=== PATIENT | female | born 1960 | race American Indian/Alaskan Native ===

== ENCOUNTER 2017-05-18 11:02 | Inpatient (IN) ==
[2017-05-18] MEDS ORDERED: IOPAMIDOL 100 ML BOTTLE IV ONE (11:03)
[2017-05-18] MEDS ORDERED: 0.9 % SODIUM CHLORIDE 1,000 ML IV ONE ×2 (11:17→13:49)
[2017-05-18] MEDS ORDERED: ONDANSETRON 4 MG/2 ML VIAL IV ONE (11:17)
[2017-05-18] MEDS ORDERED: HYDROmorphone 2 MG/ML VIAL IV PRN (11:17)
[2017-05-18 12:08] LABS: Basophils # (Auto) 0 K/mcL (0.0-0.3); Basophils % (Auto) 0.3 % (0.0-2.0); Eosinophils # (Auto) 0.2 K/mcL (0.0-0.7); Eosinophils % (Auto) 2.1 % (0.0-7.0); Granulocytes % (Auto) 73.2 % (38.0-78.0); Lymphocytes # (Auto) 1.9 K/mcL (1.5-4.8); Lymphocytes % (Auto) 19.3 % (15.5-49.0); Mean Cell Volume 88.6 fL (80.0-100.0); Mean Corpuscular HGB Conc 33.8 g/dL (31.0-36.0); Monocytes # (Auto) 0.5 K/mcL (0.1-0.9); Monocytes % (Auto) 5.1 % (1.0-12.0); Platelet Count 214 K/mcL (140-440); RBC 5.19 M/mcL (4.00-5.20); Red Cell Distribution Width 13.4 % (11.5-14.5)
[2017-05-18 12:29] LABS: ALT/SGPT 17 U/l (0-40); Albumin 4.2 gm/dL (3.2-5.2); Albumin/Globulin Ratio 1.6 (1.0-2.3); Alkaline Phosphatase 139 U/L (39-117); Blood Urea Nitrogen 17 mg/dl (6-20)
[2017-05-18] MEDS ORDERED: KETOROLAC 30 MG/ML VIAL IV ONE (12:59)
[2017-05-18 13:04] LABS: Amylase 2289 U/L (28-100); Lipase 3880 U/L (7-60)
--- NOTE | 2017-05-18 13:37 | Emergency Department Note ---
Abdominal Pain HPI - General Chief Complaint: Abdominal Pain Stated Complaint: Pancreatic problems Time Seen by Provider: 05/18/17 11:04 Source: patient Mode of arrival: ambulatory Limitations: no limitations - History of Present Illness HPI Narrative: 57-year-old female presents with mid upper abdominal pain. States "I think my pancreatitis is back ". States she has a history of chronic pancreatitis. She stopped drinking alcohol 9 years ago and has not had a problem for several years. States 3 days ago she started with abdominal pain and has had nausea and started vomiting this morning. Denies any recent alcohol use. No fever or chills. No dysuria or frequency. No home treatments. - Related Data Home Medications Medication Instructions Recorded Confirmed Multivitamin PO QDAY 09/01/14 05/12/17 [id number] See Dose Instructions PO .COMPLEX 09/01/14 05/12/17 25,000-85,000-136,000 unit cap capsule,delayed rel Previous Rx's Medication Instructions Recorded omeprazole 20 mg capsule,delayed 20 mg PO QDAY #30 cap 11/02/15 release nortriptyline 10 mg capsule 10 mg PO QHS 90 Days #90 cap 12/11/15 fluoxetine 20 mg capsule 20 mg PO QDAY #90 cap 11/13/16 metformin ER 1,000 mg 1,000 mg PO QDAY 90 Days #90 tab 11/13/16 tablet,extended release 24hr naproxen 500 mg tablet 500 mg PO Q12H #60 tab 11/21/16 albuterol sulfate HFA 90 2 puff INHALATION Q4-6H PRN #18 g 02/10/17 mcg/actuation aerosol inhaler lisinopril 5 mg tablet 5 mg PO QDAY #90 tab 02/10/17 lovastatin 20 mg tablet 20 mg PO QPM #90 tab 02/10/17 Allergies Allergy/AdvReac Type Severity Reaction Status Date / Time tramadol Allergy Unknown Rash Verified 05/18/17 11:07 morphine Allergy Headache Verified 05/18/17 11:07 Review of Systems All systems ED: reviewed and negative except as stated. Abdominal Pain PMH - Past Medical History PMFSH Narrative: Medical History Community acquired pneumonia (Chronic) Urinary, incontinence, stress female (Chronic) Urinary incontinence (Chronic) Urinary frequency (Chronic) Tobacco abuse (Chronic) Sleep apnea, obstructive (Chronic) Rectocele (Chronic) Personal history of mental disorder (Chronic) Pap smear of vagina with ASC-US (Chronic) Obesity (Chronic) Nocturia (Chronic) Migraine (Chronic) Menopausal syndrome (Chronic) Liver disorder (Chronic) Hyperlipidemia (Chronic) Hiatal hernia (Chronic) Gastroesophageal reflux (Chronic) Dyslexia (Chronic) Diverticulitis of colon (Chronic) DM (diabetes mellitus), type 2, uncontrolled (Chronic) DM type 2 (diabetes mellitus, type 2) (Chronic) Depressive disorder (Chronic) Cystocele, midline (Chronic) Colon polyp (Chronic) Chronic pancreatitis (Chronic) Carpal tunnel syndrome (Chronic) Barretts esophagus (Chronic) Asthma (Chronic) Anxiety disorder (Chronic) Abdominal pain (Chronic) Past Surgical History History of tubal ligation (Chronic) History of oophorectomy (Chronic) History of esophagogastroduodenoscopy (Chronic) History of dilation and curettage (Chronic) History of colonoscopy (Chronic) History of colectomy (Chronic) History of carpal tunnel repair (Chronic) Medical history: Reports: DM, GERD, hyperlipidemia Surgical history ED: Reports: tubal ligation - Social History Smoking status: Current every day smoker Alcohol use: Reports: None (Denies any current alcohol use but states she was a heavy drinker until she quit 9 years ago) Drug use: Reports: none Physical Exam Limitations: no limitations General appearance: alert, in no apparent distress Head: atraumatic, normocephalic, normal inspection Eye: Present: normal appearance. Absent: conjunctival injection ENT: normal exam, normal oropharynx, mucous membranes moist, normal external ear exam Neck: Present: normal inspection, trachea midline. Absent: tenderness, lymphadenopathy Chest: Present: normal inspection, symmetric chest wall rise Respiratory: Present: normal lung sounds bilaterally. Absent: respiratory distress, wheezes, accessory muscle use Cardiovascular: Present: regular rate, normal heart sounds Abdominal: Present: soft, distention (Mild distention. Round), tenderness ( Midepigastric tenderness and left upper quadrant tenderness with palpation), normal bowel sounds Extremities: Present: normal inspection, normal capillary refill. Absent: pedal edema Neurological: Present: alert, oriented X3, normal gait Psychiatric: Present: normal affect, normal mood Skin: Present: warm, dry, intact, normal color. Absent: rash, cyanosis, diaphoresis, erythema Course Course Narrative: At 1402 I did speak with the hospitalist, Dr. Avery who agrees to accept the patient. Vital Signs Temperature 97.6 F 05/18/17 11:03 Pulse Rate 89 05/18/17 11:03 Respiratory Rate 16 05/18/17 11:03 Blood Pressure 206/112 05/18/17 11:03 Pulse Oximetry (%) 97 05/18/17 11:03 Temperature 97.6 F 05/18/17 11:03 Pulse Rate 72 05/18/17 13:01 Respiratory Rate 16 05/18/17 11:03 Blood Pressure 140/82 05/18/17 13:01 Pulse Oximetry (%) 90 05/18/17 13:01 Abdominal Pain - Lab Data Lab results reviewed: Yes I reviewed the patient's lab results. Result diagrams: 05/18/17 11:25 05/18/17 11:25 Lab Results 05/18/17 05/18/17 05/18/17 Range/Units 11:25 11:25 11:25 WBC 9.9 (4.5-11.0) K/mcL RBC 5.19 (4.00-5.20) M/mcL Hgb 15.6 H (12.0-15.0) g/dL Hct 46.0 (36.0-48.0) % MCV 88.6 (80.0-100.0) fL MCH 30.0 (26.0-34.0) pg MCHC 33.8 (31.0-36.0) g/dL RDW 13.4 (11.5-14.5) % Plt Count 214 (140-440) K/mcL MPV 8.9 (7.4-10.4) fL Gran % 73.2 (38.0-78.0) % Lymph % (Auto) 19.3 (15.5-49.0) % [place] % (Auto) 5.1 (1.0-12.0) % Eos % (Auto) 2.1 (0.0-7.0) % Baso % (Auto) 0.3 (0.0-2.0) % Gran # 7.3 (1.8-8.0) K/mcL Lymph # (Auto) 1.9 (1.5-4.8) K/mcL [place] # (Auto) 0.5 (0.1-0.9) K/mcL Eos # (Auto) 0.2 (0.0-0.7) K/mcL Baso # (Auto) 0 (0.0-0.3) K/mcL Sodium 140 (133-145) mmol/L Potassium 4.1 (3.3-5.1) mmol/L Chloride 103 (96-108) mmol/L Carbon Dioxide 23 (22-30) mmol/L Anion Gap 14.0 (8-16) BUN 17 (6-20) mg/dl Creatinine 1.1 (0.6-1.1) mg/dl GFR Calculation 56 Glucose 155 H (70-105) mg/dL Calcium 9.2 (8.6-10.4) mg/dl Total Bilirubin 0.4 (0.0-1.0) mg/dL AST 23 (0-37) U/l ALT 17 (0-40) U/l Alkaline Phosphatase 139 H (39-117) U/L Total Protein 6.9 (5.9-8.4) gm/dL Albumin 4.2 (3.2-5.2) gm/dL Globulin 2.7 (2.2-3.7) gm/dL Albumin/Globulin Ratio 1.6 (1.0-2.3) Amylase 2289 H (28-100) U/L Lipase 3880 H (7-60) U/L Ethyl Alcohol < 0.010 (<0.010) gm/dl - Radiology Data Radiology results reviewed: Yes I reviewed the patient's radiology results. Disposition Pt seen by [facility]/PA only: Yes Clinical Impression: Acute pancreatitis, Chronic pancreatitis, Abdominal pain, Nausea and vomiting Disposition: Xfer As Inpt ([facility]) Condition: Fair Referrals: Alexander Arriaga PA-C [Primary Care Provider] - Time of Disposition: 14:03
--- NOTE | 2017-05-18 14:58 | Cat Scan Report ---
CLINICAL INFORMATION: Reason for Exam:abd pain, pancreatitis, (NO oral contrast, iv only FINDINGS: The patient was imaged following intravenous but no oral contrast from the diaphragm to the symphysis pubis. Sagittal and coronal reformats were created. The liver and spleen are normal in size and homogeneous. The gallbladder is normal. There is severe dilatation of the proximal common bile duct. This tapers just above the ampulla. The common bile duct measures up to 2.1 cm. The intrahepatic ducts are borderline dilated. No stone is seen within the lumen. Patient has severe pancreatitis. There is edema and inflammation in the head and neck and edema in the surrounding fat from the head to the tail. The inflammation extends into the root of the mesentery. No pseudocyst or abscess are present. There are calcifications in the head of the pancreas indicating chronic pancreatitis. In the head, the pancreatic duct measures 4 mm. Is less than 3 mm in the body and tail. No ascites or adenopathy are present. The kidneys are normal in size shape and contour. The adrenals are normal. The aorta is normal in caliber. There is a moderate amount of plaque in the mid and distal portion. Images of the pelvis show no acute abnormality. The appendix is noninflamed. There are surgical sutures around the sigmoid colon. No abnormality is seen in the uterus or adnexa. There is some scarring along the anterior superior margin of the bladder, within the midline. IMPRESSION: Severe acute pancreatitis Severely dilated extrahepatic bile ducts. This could be due to extrinsic compression of the bile duct by the inflamed pancreatic head Interpreted and Authenticated by: Abhijeet Ratliff 05/18/17
[2017-05-18] MEDS ORDERED: MAGNESIUM SULFATE 2 GM/50 ML BAG IV PRN (15:01)
[2017-05-18] MEDS ORDERED: POTASSIUM CHLORIDE 40 MEQ in DEXTROSE 5% IN WATER 500 ML IV PRN (15:01)
[2017-05-18] MEDS ORDERED: ACETAMINOPHEN 325 MG TABLET PO PRN (15:01)
[2017-05-18] MEDS: 0.9 % SODIUM CHLORIDE 1,000 ML IV SCH ×3 (15:07→19:36)
[2017-05-18] MEDS: HYDROmorphone 2 MG/ML VIAL IV PRN ×3 (15:27→19:37)
[2017-05-18] MEDS ORDERED: DEXTROSE 50% 50 ML VIAL IV PRN (16:56)
[2017-05-18] MEDS ORDERED: ALBUTEROL SULFATE 1 PUFF INHALER INH PRN (17:10)
[2017-05-18] MEDS: INSULIN LISPRO 1 UNIT/0.01 ML UNIT SQ SCH ×2 (17:43→23:46)
--- NOTE | 2017-05-18 18:30 | History and Physical Report ---
DATE OF ADMISSION: 05/18/2017 PRIMARY CARE PHYSICIAN: Alexander Arriaga PA-C DATE OF ADMISSION: 05/18/2017 REASON FOR ADMISSION: Abdominal pain, nausea, with a history of chronic pancreatitis. HISTORY OF CHIEF COMPLAINT: The patient is a 57-year-old with known history of chronic pancreatitis over the last 12 years. She has been followed up by Dr. Gomez in the past and currently Gilda Ambrocio. Patient over the last three days has noted increasing abdominal pain 8/10 along with nausea and worsening of pain each time she attempts to eat. She clearly identified the pain similar to previous episode of acute pancreatitis; however, failed to seek medical attention and was trying to work with the symptoms until it got out of control and subsequently came to [facility]. Initial workup was significant for significant elevated lipase and amylase over [address] evidence of acute pancreatitis with severely dilated extrahepatic bile duct, possibly from extrinsic compression of the bile duct by inflamed pancreatic head. The patient received crystalloids, analgesics, and antiemetics, and subsequently Hospitalist Service was consulted. At the time of evaluation, the patient is alert and oriented. She denies fever and chills but endorses significant pain, 6/10 to 8/10, radiates to the back, associated with nausea and 3 episodes of loose stool. She denies weight loss or glandular swelling. She endorses to taking her regular medication but denies taking NSAIDs or drinking alcohol. She denies recent fever or sick contacts. REVIEW OF SYSTEMS: Ten-point review of system was performed and negative except the ones discussed above. Complains of vaginal bleeding starting today. PAST MEDICAL HISTORY: 1. Chronic pancreatitis. 2. Urinary incontinence. 3. Tobacco dependence. 4. History of alcoholism, but quit 9 years ago. 5. Sleep apnea. 6. Obesity. 7. History of migraine. 8. Hyperlipidemia. 9. Diabetes mellitus type 2. 10. History of reactive airway disease. 11. Anxiety disorder. SURGICAL HISTORY: 1. Tubal ligation. 2. Oophorectomy. 3. D and C. 4. Colonoscopy. 5. Colectomy. FAMILY HISTORY: Significant for diabetes and asthma in father, breast cancer in mother, lung cancer in family. SOCIAL HISTORY: The patient currently lives with daughter and son-in-law. She is disabled. Smoking roughly half pack a day carrying over 55-hjvj-aend history of smoking. Former alcoholic. CURRENT MEDICATIONS: 2. Pancreatic supplements. 3. Lisinopril 5. 4. Lovastatin 20. 5. Metformin 1000 daily. 6. Naproxen 500 every 12 hours. 7. Nortriptyline 10 at bedtime 8. Omeprazole 20 daily. ALLERGIES: 1. TRAMADOL. 2. MORPHINE. PHYSICAL EXAMINATION: GENERAL: The patient is alert, oriented, in significant distress from pain. BMI 34.7. Height 5 feet 5 inches. VITAL SIGNS: Blood pressure 153/93, respiratory rate 18, temperature 97.6, pulse 77, saturation 94 percent on room air. Pain intensity between 8 to 10. HEENT: Pupils symmetric. Oral cavity dry. No icterus. No ear or nose discharge. Head is normocephalic and atraumatic. NECK: No lymphadenopathy. CARDIOVASCULAR: S1, S2, regular rhythm. No murmur. CHEST: Clear to auscultation bilaterally. ABDOMEN: Soft, however, tender epigastric area. Bowel sounds sluggish. Slightly distended. LOWER EXTREMITIES: No cyanosis or clubbing. No joint swelling. Normal range of motion of the joints with no joint swelling or erythema. SKIN: No suspicious lesion. PSYCHIATRIC: Alert and cooperative, mild anxiety. NEURO: Nonfocal, moving all four extremities. LABS AND IMAGING: White count 9.9, hemoglobin 15.6, platelets 214. Sodium 140, potassium 4.1, creatinine 1.1, BUN 17, glucose 155, alkaline phosphatase 139, lipase 3880, amylase 2289. CRP 0.7. Alcohol less than 0.01. CT abdomen: Acute pancreatitis along with severe dilated extrahepatic bile duct, possibly from extrinsic compression of bile duct by inflamed pancreatic head. ASSESSMENT AND PLAN: A 57-year-old with chronic pancreatitis admitted with acute pancreatitis flare. 1. Acute pancreatitis. Low [place]'s and Acute Physiology and Chronic Health Evaluation score on admit. However, continue conservative management with aggressive crystalloids with over 4000 mL in the next 6 to 8 hours followed by 200 mL an hour to prevent worsening of pancreatic inflammation. Continue antiemetics and analgesics as needed. 2. Other prior medical issues include history of diabetes mellitus type 2. Continue sliding scale insulin. 3. Anxiety disorder. As needed IV benzodiazepine. Hold oral meds. 4. Hypertension/neuropathy/hyperlipidemia/gastroesophageal reflux disease. Hold oral medications until patient is able to tolerate orally. PLAN FOR TODAY: 1. Admit as inpatient. 2. Supportive management, bowel rest, nothing by mouth. 3. Pain management, crystalloids. AA:carlita Job ID: [id number] Doc ID: [id number] Roni MALDONADO
--- NOTE | 2017-05-18 20:06 | Ultrasound Report ---
History: Choledocholithiasis Findings: The liver is normal in size and homogeneous. There is no evidence recurrent abscess. Doppler shows normal blood flow in the hepatic and portal veins. The intrahepatic bile ducts are nondilated. The gallbladder is normal with no stones or thickening of the wall. The extrahepatic bile ducts are very dilated and measure up to 2.0 cm. The dilatation is a chronic stable finding. In the distal common bile duct near the head of the pancreas there is an ill-defined echogenic structure with distal shadowing. This is either in or contiguous with the distal common bile duct. There is a transition point in the common bile duct at this level. It measures approximately 3 x 10 mm. The pancreas appears normal without evidence of a mass, inflammation or dilatation of the duct. No ascites is present. Impression: Dilated extrahepatic bile duct measuring 2 cm. This is unchanged from 2010. Calcification in or contiguous with the distal common bile duct near the head of the pancreas. If the patient's serum liver enzymes and bilirubin level are elevated, an ERCP would be recommended for further evaluation. Interpreted and Authenticated by: Abhijeet Ratliff 05/18/17
[2017-05-18] MEDS: DOCUSATE SODIUM 100 MG CAPSULE PO SCH (20:51)
[2017-05-18] MEDS: 0.9 % SODIUM CHLORIDE 10 ML SYRINGE IV SCH (20:52)
[2017-05-18] MEDS: HEPARIN 5,000 UNIT/ML VIAL SQ SCH (20:58)
[2017-05-18] MEDS ORDERED: GABAPENTIN 1200 MG PO SCH (21:00)
[2017-05-18] MEDS ORDERED: NON FORMULARY MEDICATION 1 DOSE MISCELL (Gabapentin [Gabapentin] 600 MG) PO SCH (21:00)
[2017-05-18] MEDS: ONDANSETRON 4 MG/2 ML VIAL IV PRN (21:01)
[2017-05-19] MEDS: ONDANSETRON 4 MG/2 ML VIAL IV PRN ×3 (00:51→09:49)
[2017-05-19] MEDS: 0.9 % SODIUM CHLORIDE 1,000 ML IV SCH ×4 (00:52→14:13)
[2017-05-19] MEDS: 0.9 % SODIUM CHLORIDE 10 ML SYRINGE IV SCH ×4 (05:13→23:54)
[2017-05-19 05:32] LABS: Mean Cell Volume 89.6 fL (80.0-100.0); Mean Corpuscular HGB Conc 33.7 g/dL (31.0-36.0); Mean Corpuscular Hemoglobin 30.2 pg (26.0-34.0); Platelet Count 162 K/mcL (140-440); RBC 4.79 M/mcL (4.00-5.20); Red Cell Distribution Width 13.6 % (11.5-14.5)
[2017-05-19 05:59] LABS: ALT/SGPT 13 U/l (0-40); Albumin/Globulin Ratio 1.6 (1.0-2.3); Alkaline Phosphatase 130 U/L (39-117); Bilirubin,Direct < 0.2 mg/dL (0.0-0.3); Blood Urea Nitrogen 9 mg/dl (6-20); Gamma Glutamyl Transpeptidase 22 U/L (5-36); Uric Acid 3.4 mg/dL (2.5-8.0)
[2017-05-19] MEDS ORDERED: INSULIN LISPRO 1 UNIT/0.01 ML UNIT SQ ONE (05:59)
[2017-05-19] MEDS: INSULIN LISPRO 1 UNIT/0.01 ML UNIT SQ SCH ×4 (06:00→23:55)
[2017-05-19 06:18] LABS: Band Neutrophils % 4 % (0-10); Howell-Jolly Bodies 1+ (NONE SEEN); Lymphocytes % 4 % (15-49); Monocytes % (Manual) 5 % (1-12); Platelet Estimate NORMAL (NORMAL); RBC Morphology ABNORM (NORMAL); Segmented Neutrophils % 87 % (38-78)
[2017-05-19] MEDS: PANTOPRAZOLE 40 MG VIAL IV SCH (08:12)
[2017-05-19] MEDS: GABAPENTIN 300 MG CAPSULE PO SCH ×2 (08:13→12:44)
[2017-05-19] MEDS: DOCUSATE SODIUM 100 MG CAPSULE PO SCH ×2 (09:38→21:28)
[2017-05-19] MEDS: HEPARIN 5,000 UNIT/ML VIAL SQ SCH ×2 (09:42→21:27)
[2017-05-19] MEDS: HYDROmorphone 2 MG/ML VIAL IV PRN ×5 (09:49→23:54)
--- NOTE | 2017-05-19 10:58 | Internal Med Progress Note ---
Medical - PN: Subj Patient information: Note initiated : 05/19/17 at 10:56 am Service Date, if different from initiated Date: [] Patient: Valerie De La Cruz 57 y/o F admitted on 05/18/17 for Pancreatic problems. Chief Complaint: [] Interval history: 05/18- patient admitted with a flare of acute pancreatitis on top chronic pancreatitis. Lipase and amylase over 1999. CRP 0.7. Low [place] and [place] score on admit. CT no evidence of necrosis or hemorrhage except for pancreatic head inflammation with common bile duct dilatation. abdominal ultrasound possible calcification in or contiguous with distal common bile duct near the head of pancreas. Radiology ERCP recommended however at this time and high risk of iatrogenic pancreatitis and hence continue pancreatic cooldown with conservative management. 05/19-patient doing better. Improved pain. No nausea or diarrhea or abdominal distention. No ecchymosis around the abdomen. No fever chills. Required IV opioids twice during the night. Ambulating. Continue NPO. even I's and O's. Status post 6 L crystalloids Per guidelines - Constitutional Vitals: Vital Signs Temp Pulse Resp BP Pulse Ox 98 F 72 16 145/89 93 05/19/17 07:35 05/19/17 03:25 05/19/17 07:35 05/19/17 07:35 05/19/17 07:35 Period Temp Pulse Resp BP Sys/Goodman Pulse Ox Last 24 Hr 97.4 F-98.0 F 72-89 16-18 131-206/77-112 89-97 Intake and Output 05/18/17 05/19/17 05/19/17 21:59 05:59 13:59 Intake Total 1000 / 999 Output Total 1825 / 1825 2200 / 2200 800 / 800 Balance -825 / -825 -200 / -200 -800 / -800 Weight 210 lb Intake & Output: Intake & Output 05/18/17 05/19/17 05/19/17 21:59 05:59 13:59 Intake Total 1000 / 999 Output Total 1825 / 1825 2200 / 2200 800 / 800 Balance -825 / -825 -200 / -200 -800 / -800 Weight 210 lb Intake: IV 1000 / 999 Sodium Chloride 0.9% 1,000 ml @ 1000 / 999 200 mls/hr IV .Q5H [facility] Rx#: [id number] Oral 0 / 0 0 / 0 Output: Void Amount 1600 / 1600 2050 / 2050 800 / 800 Emesis 225 / 225 150 / 150 Other: # Voids 1 1 General appearance: morbidly obese, no acute distress Exam: alert oriented nonlabored breathing Nondistended abdomen Minimally anxiety Medical - PN: Obj Da - Labs CBC & Chem 7: 05/19/17 04:25 05/19/17 04:25 Labs: Abnormal Lab Results 05/19/17 05/19/17 05/18/17 04:25 04:25 11:25 Hgb Seg Neutrophils % 87 H Lymphocytes % 4 L RBC Morphology Abnorm A [place] Bodies 1+ A Glucose 176 H 155 H Calcium 8.2 L Phosphorus 2.6 L Alkaline Phosphatase 130 H 139 H Triglycerides 171 H Amylase 2289 H Lipase 3880 H 05/18/17 11:25 Hgb 15.6 H Seg Neutrophils % Lymphocytes % RBC Morphology [place] Bodies Glucose Calcium Phosphorus Alkaline Phosphatase Triglycerides Amylase Lipase Meds: Medications Acetaminophen (Tylenol) 650 mg PO Q4-6HP PRN PRN Reason: PAIN/FEVER > 101 Albuterol Sulfate (Ventolin) 2 puff INH Q4-6HP PRN PRN Reason: cough, wheeze, SOB Dextrose (Dextrose 50%) 0 ml IV UD PRN PRN Reason: Hypoglycemia Diagnostic Test (Pha) (Accu-Chek) 1 each FS Q6 [facility] Last Admin: 05/19/17 06:00 Dose: 1 each Docusate Sodium (Colace) 100 mg PO BID [facility] Last Admin: 05/19/17 09:38 Dose: Not Given Gabapentin (Neurontin) 600 mg PO BID@0800,1200 [facility] Last Admin: 05/19/17 08:13 Dose: Not Given Gabapentin (Neurontin) 1,200 mg PO [facility] Heparin Sodium (Porcine) (Heparin) 5,000 unit SQ Q12 [facility] Last Admin: 05/19/17 09:42 Dose: 5,000 unit Hydromorphone HCl (Dilaudid) 0 mg IV Q2HP PRN PRN Reason: PAIN LEVEL > 6 Last Admin: 05/19/17 09:49 Dose: 0.5 mg Potassium Chloride 40 meq/ (Dextrose) 520 mls @ 130 mls/hr IV UD PRN PRN Reason: K+ = or < 3.5 Magnesium Sulfate (Magnesium Sulfate) 2 gm in 50 mls @ 50 mls/hr IV UD PRN PRN Reason: MG = or < 1.7 Sodium Chloride (Sodium Chloride 0.9%) 1,000 mls @ 200 mls/hr IV .Q5H [facility]USAM Stop: 05/19/17 18:29 Last Admin: 05/19/17 05:53 Dose: 200 mls/hr Insulin Human Lispro (Humalog) 0 unit SQ Q6 [facility] PRN Reason: Protocol Last Admin: 05/19/17 06:00 Dose: 2 unit Ondansetron HCl (Zofran) 4 mg IV Q4-6HP PRN PRN Reason: Nausea And Vomiting Last Admin: 05/19/17 09:49 Dose: 4 mg Pantoprazole Sodium (Protonix) 40 mg IV QAMAC [facility] Last Admin: 05/19/17 08:12 Dose: 40 mg Sodium Chloride (Saline Flush) 10 ml IV Q8 [facility] Last Admin: 05/19/17 05:13 Dose: Not Given Medical - PN: A/P - Time Spent With Patient Total time spent is greater than 50% in coordination of care (as documented) at patient's floor/unit and/or counseling patient: 15 - 24 minutes (1) Acute pancreatitis Status: Acute Assessment and plan: * acute pancreatitis- history of chronic recurrent pancreatitis. Lipase over 1999. On conservative management with active cooldown. Low [place] and [place] score on admit. Continue trending CRP. * Abdominal pain-secondary to above continue IV opioids as needed * history of neuropathy restart home meds * Hypertension-hold lisinopril * anxiety disorder-currently stable] * Full code * DVT prophylaxis onheparin Plan * Conservative management as above * Placed in medical condition management as ve * Transition to oral clears in 24 hours if clinically improved else nasojejunal feeding Current Visit: Yes Medical - PN: Qual - VTE Deep Vein Thrombosis/Pulmonary Embolism Present on Admission: No
[2017-05-19] MEDS: GABAPENTIN 400 MG CAPSULE PO SCH (21:27)
[2017-05-20] MEDS: HYDROmorphone 2 MG/ML VIAL IV PRN ×9 (03:00→22:28)
[2017-05-20] MEDS: 0.9 % SODIUM CHLORIDE 10 ML SYRINGE IV SCH ×5 (03:00→22:08)
[2017-05-20] MEDS: INSULIN LISPRO 1 UNIT/0.01 ML UNIT SQ SCH ×5 (05:55→23:41)
[2017-05-20 06:07] LABS: Mean Cell Volume 88.4 fL (80.0-100.0); Mean Corpuscular HGB Conc 33.9 g/dL (31.0-36.0); Platelet Count 182 K/mcL (140-440); RBC 4.99 M/mcL (4.00-5.20); Red Cell Distribution Width 13.8 % (11.5-14.5)
[2017-05-20 06:26] LABS: ALT/SGPT 13 U/l (0-40); Albumin 4.2 gm/dL (3.2-5.2); Albumin/Globulin Ratio 1.5 (1.0-2.3); Alkaline Phosphatase 131 U/L (39-117); Bilirubin,Direct < 0.2 mg/dL (0.0-0.3); Blood Urea Nitrogen 8 mg/dl (6-20); Gamma Glutamyl Transpeptidase 26 U/L (5-36); Uric Acid 3.2 mg/dL (2.5-8.0)
[2017-05-20] MEDS: PANTOPRAZOLE 40 MG VIAL IV SCH (07:51)
[2017-05-20] MEDS: GABAPENTIN 300 MG CAPSULE PO SCH ×2 (07:51→12:00)
[2017-05-20 07:55] LABS: Band Neutrophils % 2 % (0-10); Lymphocytes % 20 % (15-49); Monocytes % (Manual) 2 % (1-12); Platelet Estimate NORMAL (NORMAL); RBC Morphology NORMAL (NORMAL); Segmented Neutrophils % 76 % (38-78)
[2017-05-20] MEDS: HEPARIN 5,000 UNIT/ML VIAL SQ SCH ×2 (11:34→22:08)
[2017-05-20] MEDS: DOCUSATE SODIUM 100 MG CAPSULE PO SCH ×2 (11:36→22:07)
--- NOTE | 2017-05-20 14:43 | Internal Med Progress Note ---
Medical - PN: Subj Patient information: Note initiated : 05/20/17 at 2:41 pm Service Date, if different from initiated Date: [] Patient: Valerie De La Cruz 57 y/o F admitted on 05/18/17 for Pancreatic Problems/ Pancreatitis Flare. Chief Complaint: [] Interval history: 05/18- patient admitted with a flare of acute pancreatitis on top chronic pancreatitis. Lipase and amylase over 1999. CRP 0.7. Low Ransons and [place] score on admit. CT no evidence of necrosis or hemorrhage except for pancreatic head inflammation with common bile duct dilatation. abdominal ultrasound possible calcification in or contiguous with distal common bile duct near the head of pancreas. Radiology ERCP recommended however at this time and high risk of iatrogenic pancreatitis and hence continue pancreatic cooldown with conservative management. 05/19-patient doing better. Improved pain. No nausea or diarrhea or abdominal distention. No ecchymosis around the abdomen. No fever chills. Required IV opioids twice during the night. Ambulating. Continue NPO. even I's and O's. Status post 6 L crystalloids Per guidelines 05/20- patient started on clears however started experiencing abdominal pain shortly after taking morning medications. Made nothing by mouth again. Stop all oral feeds.low [place] score at 48 hour. No fever chills or worsening abdominal distention. Persistent ileus. No bowel movements.stable hemodynamics /vitals.CRP trending. - Constitutional Vitals: Vital Signs Temp Pulse Resp BP Pulse Ox 96.8 F L 83 16 155/98 94 05/20/17 11:55 05/20/17 11:55 05/20/17 07:36 05/20/17 11:55 05/20/17 11:55 Period Temp Pulse Resp BP Sys/Goodman Pulse Ox Last 24 Hr 96.8 F-98.8 F 83-91 16-18 131-178/89-98 92-95 Intake and Output 05/20/17 05/20/17 05/20/17 05:59 13:59 21:59 Intake Total 150 / 150 360 / 360 Output Total 1150 / 1150 275 / 275 Balance -1000 / -1000 85 / 85 Weight 203 lb 8 oz Patient Weight 05/21/17 05:59 Weight 203 lb 8 oz Intake & Output: Intake & Output 05/20/17 05/20/17 05/20/17 05:59 13:59 21:59 Intake Total 150 / 150 360 / 360 Output Total 1150 / 1150 275 / 275 Balance -1000 / -1000 85 / 85 Weight 203 lb 8 oz Intake: Oral 150 / 150 360 / 360 Output: Void Amount 1150 / 1150 100 / 100 Emesis 175 / 175 Other: Meal Breakfast Percent of Meal Consumed 100% Feeding Ability Independent # Voids 1 Medical - PN: Obj Da - Labs CBC & Chem 7: 05/20/17 04:45 05/20/17 04:45 Labs: Abnormal Lab Results 05/20/17 05/19/17 05/19/17 04:45 04:25 04:25 Hgb Seg Neutrophils % 87 H Lymphocytes % 4 L RBC Morphology Abnorm A Pe[place] Bodies 1+ A Glucose 128 H 176 H Calcium 8.2 L Phosphorus 2.6 L Alkaline Phosphatase 131 H 130 H Triglycerides 161 H 171 H Amylase Lipase 05/18/17 05/18/17 11:25 11:25 Hgb 15.6 H Seg Neutrophils % Lymphocytes % RBC Morphology Peña-[place]icult Run Bodies Glucose 155 H Calcium Phosphorus Alkaline Phosphatase 139 H Triglycerides Amylase 2289 H Lipase 3880 H Meds: Medications Acetaminophen (Tylenol) 650 mg PO Q4-6HP PRN PRN Reason: PAIN/FEVER > 101 Albuterol Sulfate (Ventolin) 2 puff INH Q4-6HP PRN PRN Reason: cough, wheeze, SOB Chlorhexidine Gluconate (Peridex) 15 ml SWABMOUTH BID [facility] Dextrose (Dextrose 50%) 0 ml IV UD PRN PRN Reason: Hypoglycemia Diagnostic Test (Pha) (Accu-Chek) 1 each FS ACHS [facility] Last Admin: 05/20/17 11:54 Dose: 1 each Docusate Sodium (Colace) 100 mg PO BID [facility] Last Admin: 05/20/17 11:36 Dose: Not Given Gabapentin (Neurontin) 600 mg PO BID@0800,1200 [facility] Last Admin: 05/20/17 12:00 Dose: Not Given Gabapentin (Neurontin) 1,200 mg PO HS [facility] Last Admin: 05/19/17 21:27 Dose: Not Given Heparin Sodium (Porcine) (Heparin) 5,000 unit SQ Q12 [facility] Last Admin: 05/20/17 11:34 Dose: 5,000 unit Hydromorphone HCl (Dilaudid) 0 mg IV Q2HP PRN PRN Reason: PAIN LEVEL > 6 Last Admin: 05/20/17 14:13 Dose: 1 mg Potassium Chloride 40 meq/ (Dextrose) 520 mls @ 130 mls/hr IV UD PRN PRN Reason: K+ = or < 3.5 Magnesium Sulfate (Magnesium Sulfate) 2 gm in 50 mls @ 50 mls/hr IV UD PRN PRN Reason: MG = or < 1.7 Insulin Human Lispro (Humalog) 0 unit SQ ACHS [facility] PRN Reason: Protocol Last Admin: 05/20/17 12:07 Dose: 1 unit Ondansetron HCl (Zofran) 4 mg IV Q4-6HP PRN PRN Reason: Nausea And Vomiting Last Admin: 05/19/17 09:49 Dose: 4 mg Pantoprazole Sodium (Protonix) 40 mg IV QAMAC [facility] Last Admin: 05/20/17 07:51 Dose: 40 mg Sodium Chloride (Saline Flush) 10 ml IV Q8 [facility] Last Admin: 05/20/17 14:13 Dose: 10 ml Medical - PN: A/P - Time Spent With Patient Total time spent is greater than 50% in coordination of care (as documented) at patient's floor/unit and/or counseling patient: 15 - 24 minutes (1) Acute pancreatitis Status: Acute Assessment and plan: * Acute on chronic pancreatitis- Lipase over 2000 on admission. linical improvement noted on conservative management with active cooldown. Low [place] at 48 hour. Await CRP * Abdominal pain-secondary to above continue IV opioids as needed * history of neuropathy on home dose gabapentin * Hypertension-restart lisinopril * anxiety disorder-currently stable * Full code * DVT prophylaxis on heparin Plan * continue NPO for additional 24 hours * Nasojejunal feeding starting in a.m. * pre-existing medical condition management as above * Continue CRP trending Current Visit: Yes Medical - PN: Qual - VTE Deep Vein Thrombosis/Pulmonary Embolism Present on Admission: No
[2017-05-20] MEDS: 0.9 % SODIUM CHLORIDE 1,000 ML IV SCH ×2 (16:43→23:25)
[2017-05-20] MEDS ORDERED: OMEPRAZOLE 20 MG CAPSULE PO SCH (17:00)
[2017-05-20] MEDS: GABAPENTIN 400 MG CAPSULE PO SCH (22:07)
[2017-05-20] MEDS: CHLORHEXIDINE GLUCONATE 1 ML ORAL.SOL SWABMOUTH SCH (22:09)
[2017-05-21] MEDS: HYDROmorphone 2 MG/ML VIAL IV PRN ×6 (01:36→16:24)
[2017-05-21] MEDS: INSULIN LISPRO 1 UNIT/0.01 ML UNIT SQ SCH ×5 (05:37→21:12)
[2017-05-21] MEDS: 0.9 % SODIUM CHLORIDE 1,000 ML IV SCH ×2 (05:38→07:00)
[2017-05-21] MEDS: 0.9 % SODIUM CHLORIDE 10 ML SYRINGE IV SCH ×5 (05:50→21:12)
[2017-05-21 06:40] LABS: Mean Cell Volume 89.2 fL (80.0-100.0); Mean Corpuscular HGB Conc 33.7 g/dL (31.0-36.0); Mean Corpuscular Hemoglobin 30.1 pg (26.0-34.0); Platelet Count 166 K/mcL (140-440); RBC 4.74 M/mcL (4.00-5.20); Red Cell Distribution Width 13.7 % (11.5-14.5)
[2017-05-21 07:43] LABS: ALT/SGPT 23 U/l (0-40); Albumin/Globulin Ratio 1.4 (1.0-2.3); Alkaline Phosphatase 134 U/L (39-117); Bilirubin,Direct 0.4 mg/dL (0.0-0.3); Blood Urea Nitrogen 15 mg/dl (6-20); Gamma Glutamyl Transpeptidase 52 U/L (5-36); Uric Acid 3.5 mg/dL (2.5-8.0)
[2017-05-21 07:44] LABS: C-Reactive Protein 13.1 mg/dl (0.0-0.8)
[2017-05-21] MEDS: PANTOPRAZOLE 40 MG VIAL IV SCH (07:48)
[2017-05-21] MEDS: GABAPENTIN 300 MG CAPSULE PO SCH (08:21)
[2017-05-21] MEDS: DOCUSATE SODIUM 100 MG CAPSULE PO SCH ×2 (08:21→21:12)
[2017-05-21] MEDS: LISINOPRIL 5 MG TABLET PO SCH (08:22)
[2017-05-21] MEDS: FLUoxetine HCL 20 MG CAPSULE PO SCH (08:22)
[2017-05-21] MEDS: MULTIVIT,THER IRON,CA,FA & MIN 1 TABLET PO SCH (08:22)
[2017-05-21] MEDS: CHLORHEXIDINE GLUCONATE 1 ML ORAL.SOL SWABMOUTH SCH ×2 (08:36→21:13)
[2017-05-21] MEDS: HEPARIN 5,000 UNIT/ML VIAL SQ SCH ×2 (08:36→21:10)
[2017-05-21 08:49] LABS: Band Neutrophils % 4 % (0-10); Lymphocytes % 14 % (15-49); Monocytes % (Manual) 3 % (1-12); Platelet Estimate NORMAL (NORMAL); RBC Morphology NORMAL (NORMAL); Segmented Neutrophils % 79 % (38-78)
--- NOTE | 2017-05-21 11:05 | Internal Med Progress Note ---
Medical - PN: Subj Patient information: Note initiated : 05/21/17 at 11:02 am Service Date, if different from initiated Date: [] Patient: Valerie De La Cruz 57 y/o F admitted on 05/18/17 for Pancreatic Problems/ Pancreatitis Flare. Chief Complaint: [] Interval history: 05/18- patient admitted with a flare of acute pancreatitis on top chronic pancreatitis. Lipase and amylase over 1999. CRP 0.7. Low Ransons and [place] score on admit. CT no evidence of necrosis or hemorrhage except for pancreatic head inflammation with common bile duct dilatation. abdominal ultrasound possible calcification in or contiguous with distal common bile duct near the head of pancreas. Radiology ERCP recommended however at this time and high risk of iatrogenic pancreatitis and hence continue pancreatic cooldown with conservative management. 05/19-patient doing better. Improved pain. No nausea or diarrhea or abdominal distention. No ecchymosis around the abdomen. No fever chills. Required IV opioids twice during the night. Ambulating. Continue NPO. even I's and O's. Status post 6 L crystalloids Per guidelines 05/20- patient started on clears however started experiencing abdominal pain shortly after taking morning medications. Made nothing by mouth again. Stop all oral feeds.low [place] score at 48 hour. No fever chills or worsening abdominal distention. Persistent ileus. No bowel movements.stable hemodynamics /vitals.CRP trending. 05/21- pain much improved. Patient did not tolerate Dobbhoff tube placement. However feels hungry and requesting clearance. Start trials of Jell-O's and broth. CRP uptrending at 13.1 from 0.7. stable labs hemodynamics and vitals. Possible discharge in 48 hours if clinically improving. - Constitutional Vitals: Vital Signs Temp Pulse Resp BP Pulse Ox 97.3 F 83 16 153/81 95 05/21/17 07:23 05/21/17 04:00 05/21/17 07:23 05/21/17 07:23 05/21/17 07:23 Period Temp Pulse Resp BP Sys/Goodman Pulse Ox Last 24 Hr 96.8 F-98.6 F 77-92 16-16 150-176/81-98 94-97 Intake and Output 05/20/17 05/21/17 05/21/17 21:59 05:59 13:59 Intake Total 1000 / 1000 Output Total 500 / 500 500 / 500 700 / 700 Balance -500 / -500 500 / 500 -700 / -700 Weight 198 lb Intake & Output: Intake & Output 05/20/17 05/21/17 05/21/17 21:59 05:59 13:59 Intake Total 1000 / 1000 Output Total 500 / 500 500 / 500 700 / 700 Balance -500 / -500 500 / 500 -700 / -700 Weight 198 lb Intake: IV 1000 / 1000 Sodium Chloride 0.9% 1,000 ml @ 1000 / 1000 150 mls/hr IV .Q6H40M [facility] Rx#: [id number] Oral 0 / 0 Output: Void Amount 400 / 400 500 / 500 700 / 700 Emesis 100 / 100 General appearance: cooperative, no acute distress Exam: alert oriented nonlabored breathing Ambulating No anxiety Medical - PN: Obj Da - Labs CBC & Chem 7: 05/21/17 05:27 05/21/17 05:27 Labs: Abnormal Lab Results 05/21/17 05/21/17 05/21/17 05:27 05:27 05:27 Hgb Seg Neutrophils % Lymphocytes % RBC Morphology Peña-Wren Bodies Anion Gap 17.0 H Glucose 118 H Calcium Phosphorus 2.4 L Total Bilirubin 1.2 H Direct Bilirubin 0.4 H GGT 52 H Alkaline Phosphatase 134 H C-Reactive Protein 13.1 H Prealbumin 13.8 L Triglycerides Amylase Lipase 05/21/17 05/20/17 05/20/17 05:27 04:45 04:45 Hgb Seg Neutrophils % 79 H Lymphocytes % 14 L RBC Morphology Peña-Wren Bodies Anion Gap Glucose 128 H Calcium Phosphorus Total Bilirubin Direct Bilirubin GGT Alkaline Phosphatase 131 H C-Reactive Protein 10.3 H Prealbumin Triglycerides 161 H Amylase Lipase 05/19/17 05/19/17 05/18/17 04:25 04:25 11:25 Hgb Seg Neutrophils % 87 H Lymphocytes % 4 L RBC Morphology Abnorm A Peña-Wren Bodies 1+ A Anion Gap Glucose 176 H 155 H Calcium 8.2 L Phosphorus 2.6 L Total Bilirubin Direct Bilirubin GGT Alkaline Phosphatase 130 H 139 H C-Reactive Protein Prealbumin Triglycerides 171 H Amylase 2289 H Lipase 3880 H 05/18/17 11:25 Hgb 15.6 H Seg Neutrophils % Lymphocytes % RBC Morphology Peña-Wren Bodies Anion Gap Glucose Calcium Phosphorus Total Bilirubin Direct Bilirubin GGT Alkaline Phosphatase C-Reactive Protein Prealbumin Triglycerides Amylase Lipase Meds: Medications Acetaminophen (Tylenol) 650 mg PO Q4-6HP PRN PRN Reason: PAIN/FEVER > 101 Albuterol Sulfate (Ventolin) 2 puff INH Q4-6HP PRN PRN Reason: cough, wheeze, SOB Chlorhexidine Gluconate (Peridex) 15 ml SWABMOUTH BID [facility] Last Admin: 05/21/17 08:36 Dose: 15 ml Dextrose (Dextrose 50%) 0 ml IV UD PRN PRN Reason: Hypoglycemia Diagnostic Test (Pha) (Accu-Chek) 1 each FS Q6 [facility] Last Admin: 05/21/17 05:37 Dose: 1 each Docusate Sodium (Colace) 100 mg PO BID [facility] Last Admin: 05/21/17 08:21 Dose: Not Given Fluoxetine HCl (Prozac) 20 mg PO DAILY [facility] Last Admin: 05/21/17 08:22 Dose: Not Given Gabapentin (Neurontin) 600 mg PO BID@0800,1200 [facility] Last Admin: 05/21/17 08:21 Dose: Not Given Gabapentin (Neurontin) 1,200 mg PO HS [facility] Last Admin: 05/20/17 22:07 Dose: Not Given Heparin Sodium (Porcine) (Heparin) 5,000 unit SQ Q12 [facility] Last Admin: 05/21/17 08:36 Dose: 5,000 unit Hydromorphone HCl (Dilaudid) 0 mg IV Q2HP PRN PRN Reason: PAIN LEVEL > 6 Last Admin: 05/21/17 09:48 Dose: 1 mg Potassium Chloride 40 meq/ (Dextrose) 520 mls @ 130 mls/hr IV UD PRN PRN Reason: K+ = or < 3.5 Magnesium Sulfate (Magnesium Sulfate) 2 gm in 50 mls @ 50 mls/hr IV UD PRN PRN Reason: MG = or < 1.7 Sodium Chloride (Sodium Chloride 0.9%) 1,000 mls @ 150 mls/hr IV .Q6H40M [facility] Stop: 05/21/17 12:44 Last Admin: 05/21/17 05:38 Dose: Not Given Insulin Human Lispro (Humalog) 0 unit SQ Q6H [facility] PRN Reason: Protocol Last Admin: 05/21/17 05:37 Dose: Not Given Iron Carb/Multivit/Creek/Folic Acid (Multivitamin W/Minerals) 1 tab PO DAILY [facility] Last Admin: 05/21/17 08:22 Dose: Not Given Lisinopril (Zestril) 5 mg PO QDAY [facility] Last Admin: 05/21/17 08:22 Dose: Not Given Ondansetron HCl (Zofran) 4 mg IV Q4-6HP PRN PRN Reason: Nausea And Vomiting Last Admin: 05/19/17 09:49 Dose: 4 mg Pantoprazole Sodium (Protonix) 40 mg IV QAMAC [facility] Last Admin: 05/21/17 07:48 Dose: 40 mg Sodium Chloride (Saline Flush) 10 ml IV Q8 [facility] Last Admin: 05/21/17 05:50 Dose: Not Given Medical - PN: A/P - Time Spent With Patient Total time spent is greater than 50% in coordination of care (as documented) at patient's floor/unit and/or counseling patient: 15 - 24 minutes (1) Acute pancreatitis Status: Acute Assessment and plan: * Acute on chronic pancreatitis- Lipase over 2000 on admission. CRP uptrending from 0.7-13.6. however clinically improving and advancing to clears with chills. Continue conservative management * Abdominal pain-clinically improved * history of neuropathy -hold gabapentin due to * Hypertension-restart lisinopril * anxiety disorder-currently stable * Full code * DVT prophylaxis on heparin Plan * Start clears * pre-existing medical condition management as above * Continue CRP trending Current Visit: Yes Medical - PN: Qual - VTE Deep Vein Thrombosis/Pulmonary Embolism Present on Admission: No
[2017-05-21] MEDS: HYDROcodone/APAP 5/325MG TABLET PO PRN (19:19)
[2017-05-21] MEDS: GABAPENTIN 400 MG CAPSULE PO SCH ×2 (21:11→21:14)
[2017-05-22] MEDS: HYDROcodone/APAP 5/325MG TABLET PO PRN ×5 (00:30→19:10)
[2017-05-22 05:48] LABS: Mean Cell Volume 88.9 fL (80.0-100.0); Mean Corpuscular HGB Conc 33.8 g/dL (31.0-36.0); Mean Corpuscular Hemoglobin 30.1 pg (26.0-34.0); Platelet Count 183 K/mcL (140-440); RBC 4.97 M/mcL (4.00-5.20); Red Cell Distribution Width 13.7 % (11.5-14.5)
[2017-05-22 06:37] LABS: ALT/SGPT 41 U/l (0-40); Albumin 4.1 gm/dL (3.2-5.2); Albumin/Globulin Ratio 1.3 (1.0-2.3); Alkaline Phosphatase 145 U/L (39-117); Bilirubin,Direct 0.5 mg/dL (0.0-0.3); Blood Urea Nitrogen 12 mg/dl (6-20); Gamma Glutamyl Transpeptidase 80 U/L (5-36)
[2017-05-22] MEDS: 0.9 % SODIUM CHLORIDE 10 ML SYRINGE IV SCH ×3 (06:37→21:45)
[2017-05-22] MEDS: PANTOPRAZOLE 40 MG VIAL IV SCH (06:52)
[2017-05-22] MEDS: INSULIN LISPRO 1 UNIT/0.01 ML UNIT SQ SCH ×4 (06:59→21:52)
[2017-05-22] MEDS: MULTIVIT,THER IRON,CA,FA & MIN 1 TABLET PO SCH (08:06)
[2017-05-22] MEDS: HEPARIN 5,000 UNIT/ML VIAL SQ SCH (08:06)
[2017-05-22] MEDS: DOCUSATE SODIUM 100 MG CAPSULE PO SCH ×2 (08:06→21:44)
[2017-05-22] MEDS: LISINOPRIL 5 MG TABLET PO SCH (08:06)
[2017-05-22] MEDS: FLUoxetine HCL 20 MG CAPSULE PO SCH (08:06)
[2017-05-22] MEDS: CHLORHEXIDINE GLUCONATE 1 ML ORAL.SOL SWABMOUTH SCH ×2 (08:13→21:45)
[2017-05-22 09:00] LABS: Eosinophils % (Manual) 1 % (0-7); Lymphocytes % 21 % (15-49); Monocytes % (Manual) 5 % (1-12); Platelet Estimate NORMAL (NORMAL); RBC Morphology NORMAL (NORMAL); Segmented Neutrophils % 74 % (38-78)
--- NOTE | 2017-05-22 14:23 | Internal Medicine Consult Note ---
Medical - CN: HPI - Data of Consult Patient: known to practice within the last 3 years Consult date: 05/22/17 Requesting Physician: Dr. Husain Primary Care Provider: Alexander Arriaga Family Provider: Alexander Arriaga - Consult Narrative Reason for consult: pancreatitis History of present illness: Ms. De La Cruz is a 57 year old F whom I know well having seen her in the past for chronic alcoholic pancreatitis with a past history of long high grade distal biliary stricture resolved with stenting in 2009, who has been admitted with acute on chronic pancreatitis. She has been sober for about a decade and done well on a regimen of nortriptyline and pancrealipase, but ran out of the medication last week. She has an 8day history of epigastric pain that radiates to the back with associated nausea and anorexia. CT revealed changes consistent with severe pancreatitis and marked biliary dilatation of 21mm with pancreatic ductal dilatation of 4mm in the head. US was undertaken and suggested shadowing in the distal bile duct. Alkaline phosphatase and total bilirubin have modestly increased. She admits to intermittent episodes of upper abdominal pain that last for a couple of hours at a time, suggestive of biliary colic, although no gallstones were seen on recent US. Since admission, she has improved significantly with near resolution of her abdominal pain and return of her appetite. She ate a regular diet at lunch today. She is having some trouble moving her bowels since admission but over all is dramatically improved. CC: Roni Sanchez - Constitutional Constitutional: Present: as per HPI. Absent: chills, weight loss - Respiratory Respiratory: Absent: cough - Gastrointestinal Gastrointestinal: Present: abdominal pain, constipation. Absent: nausea, vomiting Medical - CN: PMH Medical history: Chronic alcoholic pancreatitis, biliary stricture with stenting via ERCP 2009, alcoholic liver disease, history of hepatic abscess, Fletcher's esophagus, distal esophageal ring, obstructive sleep apnea, migraine, diabetes. Surgical history: Sigmoid colectomy for diverticulitis, tubal ligation, oopherectomy, ERCP. Colonoscopy showed adenomatous colon polyps 2013. Family history: reviewed and not pertinent (colon cancer in mother and sister) Smoking status: Current every day smoker Alcohol use: other (quit) Medical - CN: Meds Home Medications Medication Instructions Recorded Confirmed Type Multivitamin 1 tab PO QDAY 09/01/14 05/18/17 History fluoxetine 20 mg capsule 20 mg PO QDAY #90 cap 11/13/16 05/18/17 Rx albuterol sulfate HFA 90 2 puff INHALATION Q4-6H PRN #18 g 02/10/17 05/18/17 Rx mcg/actuation aerosol inhaler lisinopril 5 mg tablet 5 mg PO QDAY #90 tab 02/10/17 05/18/17 Rx lovastatin 20 mg tablet 20 mg PO QPM #90 tab 02/10/17 05/18/17 Rx Gabapentin 1,200 mg PO QHS 05/18/17 05/18/17 History Gabapentin 600 mg PO BID 05/18/17 05/18/17 History Hydrocodone/APAP 7.5/325Mg [[place] 1 tab PO Q6HP PRN 05/18/17 05/18/17 History 7.5-325Mg] Nortriptyline HCl [Pamelor] 25 mg PO QHS 05/18/17 05/18/17 History Omeprazole [Prilosec] 20 mg PO BID 05/18/17 05/18/17 History metFORMIN HCL [Metformin HCl ER] 1,000 mg PO QPM 05/18/17 05/18/17 History Allergies Allergy/AdvReac Type Severity Reaction Status Date / Time tramadol Allergy Mild Rash Verified 05/21/17 15:14 morphine AdvReac Mild Headache Verified 05/21/17 15:14 Medical - CN: Exam - Constitutional Vitals: Temp Pulse Resp BP Pulse Ox 97.8 F 85 16 140/82 98 05/22/17 12:00 05/22/17 12:00 05/22/17 12:00 05/22/17 12:00 05/22/17 12:00 General appearance: average body habitus, cooperative, no acute distress - Head Head exam: Present: atraumatic, normal inspection - Eye Eye exam: Present: normal appearance - ENT ENT exam: Present: mucous membranes moist, normal exam - Neck Neck exam: Present: full ROM. Absent: lymphadenopathy - Respiratory Respiratory exam: Present: normal respiratory exam, CTAB - Cardiovascular Cardiovascular exam: Present: normal rate and rhythm, RRR - GI/Abdominal GI/Abdominal exam: Present: normal bowel sounds, soft. Absent: mass, rigid, tenderness - Psychiatric Psychiatric exam: Present: normal affect, normal mood - Skin Skin exam: Present: dry, intact, warm Medical - CN: Result - Labs CBC & Chem 7: 03/15/18 04:57 05/22/17 04:57 Labs: Short CBC 05/22/17 Range/Units 04:57 WBC 5.4 (4.5-11.0) K/mcL Hgb 15.0 (12.0-15.0) g/dL Hct 44.2 (36.0-48.0) % Plt Count 183 (140-440) K/mcL BMP 05/22/17 04:57 Sodium 139 Potassium 3.6 Chloride 99 Carbon Dioxide 25 BUN 12 Creatinine 0.8 Glucose 148 H Calcium 9.4 Liver Function 05/22/17 Range/Units 04:57 Total Bilirubin 1.4 H (0.0-1.0) mg/dL Direct Bilirubin 0.5 H (0.0-0.3) mg/dL GGT 80 H (5-36) U/L AST 55 H (0-37) U/l ALT 41 H (0-40) U/l Alkaline Phosphatase 145 H (39-117) U/L Albumin 4.1 (3.2-5.2) gm/dL Medical - CN: A/P (1) Acute pancreatitis Status: Acute Assessment and plan: In light of her symptoms suggestive of biliary colic and shadowing seen on US, we suspect this acute episode may be related to gallstone pancreatitis. Therefore, cholecystectomy with intraoperative cholangiogram should be undertaken during this hospitalization. If IOP is not clear, ERCP would be indicated. She will resume nortriptyline and pancrealipase.
[2017-05-22] MEDS: HYDROmorphone 2 MG/ML VIAL IV PRN ×2 (15:09→21:53)
--- NOTE | 2017-05-22 16:15 | General Surgery Consult Note ---
History of Present Illness Patient information: Note initiated : 05/22/17 at 4:11 pm Service Date, if different from initiated Date: [] Patient: Valerie De La Cruz 57 y/o F admitted on 05/18/17 for Pancreatic Problems/ Pancreatitis Flare. Chief Complaint: [] Reason for consult: abdominal pain Requesting physician: Gilda Ambrocio History of present illness: 57-year-old female who was admitted on 18 May for recurrent severe colicky abdominal pain with nausea and vomiting. She was noted to have an acute flare of pancreatitis and has been treated appropriately. Clinically she is improved. She was seen by the GI service to have major concerns about possible distal common bile duct stone however patient has history of ERCP with stenting in 2009. It is not known if a papillotomy was done at that time. There is no air in the biliary tree and there is easy tapering of the distal common bile duct on CT which suggests that there might be developing stricture due to the severe pancreatitis. Her initial lipase was over 2000 but she has not had a follow-up study done. This will need to be repeated. CT confirms that she has marked edema of the head and neck of the pancreas with a normal pancreatic duct. Patient is counseled for laparoscopic cholecystectomy with cholangiogram so that her duct can be definitively cleared. She agrees to proceed with the surgery Review of Systems - Constitutional fatigue, headache(s), malaise - EENT Nose, mouth and throat: no dizziness, no dysphagia, no headache(s) - Cardiovascular dyspnea on exertion, palpatations, no chest pain with activity, no syncope - Respiratory dyspnea on exertion, snoring, chest congestion, no wheezing - Gastrointestinal abdominal pain, bloating, constipation, cramping, heartburn, nausea, vomiting - Genitourinary Genitourinary: nocturia, urinary frequency, urinary hesitancy, urinary incontinence, urinary urgency - Musculoskeletal back pain, no arthralgias, no atrophy, no myalgias, no stiffness - Integumentary no changing lesions, no pruritus, no rash (This is not her problem), no jaundice - Neurological abnormal hearing, dizziness, weakness - Psychiatric anxiety, depression - Endocrine fatigue, no palpitations - Hematologic/Lymphatic no easy bleeding, no easy bruising, no lymphadenopathy - Allergic/Immunologic no tongue swelling, no throat swelling, no uticaria, no wheezing, no lip swelling Past History Past medical history: Acute and chronic pancreatitis History of alcoholic liver disease History of hepatic abscess Fletcher's esophagus Gastroesophageal reflux disease Anxiety disorder Depressive disorder Chronic obstructive sleep apnea History of colon polyps Past surgical history: Carpal tunnel release Partial colectomy Bilateral oophorectomy ERCP with stenting 2009 Past family history: diabetes mellitus Breast cancer Lung cancer Colon cancer Past social history: Single Present everyday smoker Former alcohol use Frequent marijuana use Medications and Allergies Home Medications Medication Instructions Recorded Confirmed Type Multivitamin 1 tab PO QDAY 09/01/14 05/18/17 History fluoxetine 20 mg capsule 20 mg PO QDAY #90 cap 11/13/16 05/18/17 Rx albuterol sulfate HFA 90 2 puff INHALATION Q4-6H PRN #18 g 02/10/17 05/18/17 Rx mcg/actuation aerosol inhaler lisinopril 5 mg tablet 5 mg PO QDAY #90 tab 02/10/17 05/18/17 Rx lovastatin 20 mg tablet 20 mg PO QPM #90 tab 02/10/17 05/18/17 Rx Gabapentin 1,200 mg PO QHS 05/18/17 05/18/17 History Gabapentin 600 mg PO BID 05/18/17 05/18/17 History Hydrocodone/APAP 7.5/325Mg [[place] 1 tab PO Q6HP PRN 05/18/17 05/18/17 History 7.5-325Mg] Nortriptyline HCl [Pamelor] 25 mg PO QHS 05/18/17 05/18/17 History Omeprazole [Prilosec] 20 mg PO BID 05/18/17 05/18/17 History metFORMIN HCL [Metformin HCl ER] 1,000 mg PO QPM 05/18/17 05/18/17 History Allergies Allergy/AdvReac Type Severity Reaction Status Date / Time tramadol Allergy Mild Rash Verified 05/21/17 15:14 morphine AdvReac Mild Headache Verified 05/21/17 15:14 Exam Temp Pulse Resp BP Pulse Ox 97.8 F 85 16 140/82 98 05/22/17 12:00 05/22/17 12:00 05/22/17 12:00 05/22/17 12:00 05/22/17 12:00 - General physical appearance well developed, well nourished, no distress - Eyes PERRL, normal ocular movement - ENT normal pinna, normal nares, normal mucosa, no hearing loss, no congestion - Head Head exam IM: Present: atraumatic, normal inspection, normocephalic - Neck no masses, no bruits, trachea midline, no lymphadectomy, no venous distension - Cardiovascular Cardiovascular exam IM: Present: normal rate and rhythm, RRR, +S1, +S2. Absent : JVD, tachycardia - Respiratory normal expansion, normal respiratory effort, clear to percussion, clear to auscultation - Abdomen Abdomen: Present: soft, tender (Mild tenderness in epigastrium and bilateral upper quadrants; good active bowel sounds; healed lower midline incision), bowel sounds Hernia: Present: none - Genitourinary Present: normal external genitalia - Integumentary Present: no rash, no growths, no abnormal pigmentation - Neurologic Present: normal coordination, normal sensation - Musculoskeletal Present: normal gait, normal posture - Psychiatric Present: oriented to time, oriented to person, oriented to place, speech is normal, memory intact Results - Labs 05/22/17 04:57 05/22/17 04:57 Abnormal lab results 05/22/17 Range/Units 04:57 Glucose 148 H (70-105) mg/dL Total Bilirubin 1.4 H (0.0-1.0) mg/dL Direct Bilirubin 0.5 H (0.0-0.3) mg/dL GGT 80 H (5-36) U/L AST 55 H (0-37) U/l ALT 41 H (0-40) U/l Alkaline Phosphatase 145 H (39-117) U/L Triglycerides 159 H (<150) mg/dl Diabetes panel 05/22/17 Range/Units 04:57 Sodium 139 (133-145) mmol/L Potassium 3.6 (3.3-5.1) mmol/L Chloride 99 (96-108) mmol/L Carbon Dioxide 25 (22-30) mmol/L BUN 12 (6-20) mg/dl Creatinine 0.8 (0.6-1.1) mg/dl Glucose 148 H (70-105) mg/dL Calcium 9.4 (8.6-10.4) mg/dl AST 55 H (0-37) U/l ALT 41 H (0-40) U/l Alkaline Phosphatase 145 H (39-117) U/L Total Protein 7.2 (5.9-8.4) gm/dL Albumin 4.1 (3.2-5.2) gm/dL Triglycerides 159 H (<150) mg/dl Calcium panel 05/22/17 Range/Units 04:57 Calcium 9.4 (8.6-10.4) mg/dl Phosphorus 2.8 (2.7-4.5) mg/dL Albumin 4.1 (3.2-5.2) gm/dL Pituitary panel 05/22/17 Range/Units 04:57 Sodium 139 (133-145) mmol/L Potassium 3.6 (3.3-5.1) mmol/L Chloride 99 (96-108) mmol/L Carbon Dioxide 25 (22-30) mmol/L BUN 12 (6-20) mg/dl Creatinine 0.8 (0.6-1.1) mg/dl Glucose 148 H (70-105) mg/dL Calcium 9.4 (8.6-10.4) mg/dl Adrenal panel 05/22/17 Range/Units 04:57 Sodium 139 (133-145) mmol/L Potassium 3.6 (3.3-5.1) mmol/L Chloride 99 (96-108) mmol/L Carbon Dioxide 25 (22-30) mmol/L BUN 12 (6-20) mg/dl Creatinine 0.8 (0.6-1.1) mg/dl Glucose 148 H (70-105) mg/dL Calcium 9.4 (8.6-10.4) mg/dl Total Bilirubin 1.4 H (0.0-1.0) mg/dL AST 55 H (0-37) U/l ALT 41 H (0-40) U/l Alkaline Phosphatase 145 H (39-117) U/L Total Protein 7.2 (5.9-8.4) gm/dL Albumin 4.1 (3.2-5.2) gm/dL All other labs normal. Assessment and Plan (1) Biliary acute pancreatitis Patient counseled for laparoscopic cholecystectomy with cholangiogram. It will be done tomorrow Status: Acute (2) Alcoholic liver disease Status: Chronic (3) Anxiety with depression Status: Chronic (4) Diabetes mellitus Status: Chronic Qualifiers: Diabetes mellitus type: type 2 Diabetes mellitus complication status: without complication Diabetes mellitus intermediate manager insulin use: without chcf use Qualified Code(s): E11.9 - Type 2 diabetes mellitus without complications
[2017-05-22 17:15] LABS: Amylase 84 U/L (28-100); Lipase 67 U/L (7-60)
--- NOTE | 2017-05-22 20:30 | Internal Med Progress Note ---
Medical - PN: Subj Patient information: Note initiated : 05/22/17 at 8:28 pm Service Date, if different from initiated Date: [] Patient: Valerie De La Cruz 57 y/o F admitted on 05/18/17 for Pancreatic Problems/ Pancreatitis Flare. Chief Complaint: [] Interval history: 05/18- patient admitted with a flare of acute pancreatitis on top chronic pancreatitis. Lipase and amylase over 1999. CRP 0.7. Low Ransons and [place] score on admit. CT no evidence of necrosis or hemorrhage except for pancreatic head inflammation with common bile duct dilatation. abdominal ultrasound possible calcification in or contiguous with distal common bile duct near the head of pancreas. Radiology ERCP recommended however at this time and high risk of iatrogenic pancreatitis and hence continue pancreatic cooldown with conservative management. 05/19-patient doing better. Improved pain. No nausea or diarrhea or abdominal distention. No ecchymosis around the abdomen. No fever chills. Required IV opioids twice during the night. Ambulating. Continue NPO. even I's and O's. Status post 6 L crystalloids Per guidelines 05/20- patient started on clears however started experiencing abdominal pain shortly after taking morning medications. Made nothing by mouth again. Stop all oral feeds.low [place] score at 48 hour. No fever chills or worsening abdominal distention. Persistent ileus. No bowel movements.stable hemodynamics /vitals.CRP trending. 05/21- pain much improved. Patient did not tolerate Dobbhoff tube placement. However feels hungry and requesting clearance. Start trials of Jell-O's and broth. CRP uptrending at 13.1 from 0.7. stable labs hemodynamics and vitals. Possible discharge in 48 hours if clinically improving. 05/22 She is seen and examined, pain is much better, patient is able to tolerate p.o. diet well. The patient's labs however showed that the patient has worsening liver function test today. The patient has dilated CBD. I reviewed the findings with the GI doctor who recommended that patient have a cholecystectomy done given the recent episode of acute pancreatitis. The patient may have a stricture and made a papillotomy in the future surgical planning for cholecystectomy tomorrow morning Pertinent ROS: Denies headache, dizziness Denies chest pain, palpitations Denies cough or shortness of breath Denies abdominal pain, nausea or vomiting. - Constitutional Vitals: Vital Signs Temp Pulse Resp BP Pulse Ox 97.8 F 83 16 142/82 98 05/22/17 16:00 05/22/17 16:00 05/22/17 16:00 05/22/17 16:00 05/22/17 16:00 Period Temp Pulse Resp BP Sys/Goodman Pulse Ox Last 24 Hr 97.8 F-98.5 F 79-87 16-16 140-151/82-95 96-98 Intake and Output 05/22/17 05/22/17 05/22/17 05:59 13:59 21:59 Intake Total 300 / 300 360 / 360 120 / 120 Output Total 1050 / 1050 200 / 200 Balance -750 / -750 360 / 360 -80 / -80 Weight 198 lb 8 oz Patient Weight 05/23/17 05:59 Weight 198 lb 8 oz Intake & Output: Intake & Output 05/22/17 05/22/17 05/22/17 05:59 13:59 21:59 Intake Total 300 / 300 360 / 360 120 / 120 Output Total 1050 / 1050 200 / 200 Balance -750 / -750 360 / 360 -80 / -80 Weight 198 lb 8 oz Intake: Oral 300 / 300 360 / 360 120 / 120 Output: Void Amount 1050 / 1050 200 / 200 Other: Meal Lunch Dinner Percent of Meal Consumed 100% 75% Feeding Ability Independent Independent # Voids 3 Exam: Constitutional; Afebrile, cooperative, alert, not in distress. Eyes- No icterus, , No periorbital swelling Ears- Ext ear normal, hearing normal to conversation. Neck- Midline trachea, supple Respiratory system: Air Entry equal on both sides, No crackles or wheezing, no rhonchi. CVS- Rate rhythm regular, S1,S2 heard, no gallop, no rub. Abdomen- Soft nontender abdomen, no organomegaly, no tenderness, no guarding or rigidity, SCRAP SORTER- AOOx3, moving all extremities, no gross focal deficit noted. Medical - PN: Obj Da - Labs CBC & Chem 7: 05/22/17 04:57 05/22/17 04:57 Labs: Abnormal Lab Results 05/22/17 05/22/17 0318 16:17 04:57 05:27 Seg Neutrophils % Lymphocytes % Anion Gap Glucose 148 H Phosphorus Total Bilirubin 1.4 H Direct Bilirubin 0.5 H GGT 80 H AST 55 H ALT 41 H Alkaline Phosphatase 145 H C-Reactive Protein 13.1 H Prealbumin Triglycerides 159 H Lipase 67 H 05/21/17 05/21/17 05/21/17 05:27 05:27 05:27 Seg Neutrophils % 79 H Lymphocytes % 14 L Anion Gap 17.0 H Glucose 118 H Phosphorus 2.4 L Total Bilirubin 1.2 H Direct Bilirubin 0.4 H GGT 52 H AST ALT Alkaline Phosphatase 134 H C-Reactive Protein Prealbumin 13.8 L Triglycerides Lipase 05/20/17 05/20/17 04:45 04:45 Seg Neutrophils % Lymphocytes % Anion Gap Glucose 128 H Phosphorus Total Bilirubin Direct Bilirubin GGT AST ALT Alkaline Phosphatase 131 H C-Reactive Protein 10.3 H Prealbumin Triglycerides 161 H Lipase Meds: Medications Acetaminophen (Tylenol) 650 mg PO Q4-6HP PRN PRN Reason: PAIN/FEVER > 101 Hydrocodone Bitart/Acetaminophen ([place] 5/325mg) 1 - 2 tab PO Q4HP PRN PRN Reason: PAIN LEVEL 3-6 Last Admin: 05/22/17 19:10 Dose: 2 tab Albuterol Sulfate (Ventolin) 2 puff INH Q4-6HP PRN PRN Reason: cough, wheeze, SOB Chlorhexidine Gluconate (Peridex) 15 ml SWABMOUTH BID [facility] Last Admin: 05/22/17 08:13 Dose: 15 ml Dextrose (Dextrose 50%) 0 ml IV UD PRN PRN Reason: Hypoglycemia Diagnostic Test (Pha) (Accu-Chek) 1 each FS ACHS [facility] Last Admin: 05/22/17 18:11 Dose: Not Given Docusate Sodium (Colace) 100 mg PO BID [facility] Last Admin: 05/22/17 08:06 Dose: 100 mg Fluoxetine HCl (Prozac) 20 mg PO DAILY [facility] Last Admin: 05/22/17 08:06 Dose: 20 mg Gabapentin (Neurontin) 1,200 mg PO [facility] Last Admin: 05/21/17 21:14 Dose: Not Given Hydromorphone HCl (Dilaudid) 0 mg IV Q2HP PRN PRN Reason: PAIN LEVEL > 6 Potassium Chloride 40 meq/ (Dextrose) 520 mls @ 130 mls/hr IV UD PRN PRN Reason: K+ = or < 3.5 Last Infusion: 05/21/17 19:30 Dose: Infused Magnesium Sulfate (Magnesium Sulfate) 2 gm in 50 mls @ 50 mls/hr IV UD PRN PRN Reason: MG = or < 1.7 Insulin Human Lispro (Humalog) 0 unit SQ ACHS [facility] PRN Reason: Protocol Last Admin: 05/22/17 18:11 Dose: Not Given Iron Carb/Multivit/[place]/Folic Acid (Multivitamin W/Minerals) 1 tab PO DAILY [facility] Last Admin: 05/22/17 08:06 Dose: 1 tab Lisinopril (Zestril) 5 mg PO QDAY [facility] Last Admin: 05/22/17 08:06 Dose: 5 mg Ondansetron HCl (Zofran) 4 mg IV Q4-6HP PRN PRN Reason: Nausea And Vomiting Last Admin: 05/19/17 09:49 Dose: 4 mg Pantoprazole Sodium (Protonix) 40 mg IV QAMAC [facility] Last Admin: 05/22/17 06:52 Dose: 40 mg Sodium Chloride (Saline Flush) 10 ml IV Q8 [facility] Last Admin: 05/22/17 15:32 Dose: 10 ml Medical - PN: A/P - Time Spent With Patient Total time spent is greater than 50% in coordination of care (as documented) at patient's floor/unit and/or counseling patient: - Narrative A/P Narrative: A/P Acute on chr pancreatitis Acute billiary pancreatitis Dialated Common bile duct Abnormal liver function tests h/o etoh abuse anxiety disorder Asthma disorder Diabetes Mellitus Plan Continue to monitor Cholecystectomy tomorrow insulin for glucose control pain management appreciate gi and surgery input. Medical - PN: Qual - VTE Deep Vein Thrombosis/Pulmonary Embolism Present on Admission: No
[2017-05-22] MEDS: GABAPENTIN 400 MG CAPSULE PO SCH (21:45)
[2017-05-23] MEDS: HYDROmorphone 2 MG/ML VIAL IV PRN ×2 (00:49→04:11)
[2017-05-23 06:25] LABS: Mean Corpuscular HGB Conc 33.5 g/dL (31.0-36.0); Mean Corpuscular Hemoglobin 29.8 pg (26.0-34.0); Platelet Count 193 K/mcL (140-440); Red Cell Distribution Width 13.9 % (11.5-14.5)
[2017-05-23 07:22] LABS: ALT/SGPT 54 U/l (0-40); Albumin/Globulin Ratio 1.3 (1.0-2.3); Alkaline Phosphatase 139 U/L (39-117); Bilirubin,Direct 0.2 mg/dL (0.0-0.3); Blood Urea Nitrogen 21 mg/dl (6-20); Gamma Glutamyl Transpeptidase 89 U/L (5-36); Uric Acid 3.2 mg/dL (2.5-8.0)
[2017-05-23] MEDS ORDERED: IPRATROPIUM/ALBUTEROL 3 ML AMPUL.NEB NEB ONE (07:40)
[2017-05-23] MEDS: PANTOPRAZOLE 40 MG VIAL IV SCH (08:12)
[2017-05-23] MEDS: INSULIN LISPRO 1 UNIT/0.01 ML UNIT SQ SCH ×4 (08:14→21:30)
[2017-05-23] MEDS: MULTIVIT,THER IRON,CA,FA & MIN 1 TABLET PO SCH (08:22)
[2017-05-23] MEDS: 0.9 % SODIUM CHLORIDE 10 ML SYRINGE IV SCH ×3 (08:22→21:31)
[2017-05-23] MEDS: DOCUSATE SODIUM 100 MG CAPSULE PO SCH ×2 (08:22→21:29)
[2017-05-23] MEDS: CHLORHEXIDINE GLUCONATE 1 ML ORAL.SOL SWABMOUTH SCH ×2 (08:23→21:31)
[2017-05-23] MEDS ORDERED: cefOXitin 2 GM VIAL IV ONE (08:35)
[2017-05-23 08:49] LABS: Lymphocytes % 22 % (15-49); Monocytes % (Manual) 9 % (1-12); Platelet Estimate NORMAL (NORMAL); RBC Morphology NORMAL (NORMAL); Segmented Neutrophils % 62 % (38-78)
[2017-05-23] MEDS ORDERED: PROPOFOL 200 MG/20 ML VIAL IV ONE ×2 (09:00→16:14)
[2017-05-23] MEDS ORDERED: LIDOCAINE HCL/PF 100 MG/5 ML SYRINGE IV ONE (09:00)
[2017-05-23] MEDS ORDERED: fentaNYL 250 MCG/5 ML VIAL IV ONE (09:00)
[2017-05-23] MEDS ORDERED: ONDANSETRON 4 MG/2 ML VIAL IV ONE (09:00)
[2017-05-23] MEDS ORDERED: KETAMINE 100 MG/ML ML IV ONE (09:00)
[2017-05-23] MEDS ORDERED: ROCURONIUM 10 MG/ML ML IV ONE (09:00)
[2017-05-23] MEDS ORDERED: SUCCINYLCHOLINE 20 MG/ML ML IV ONE (09:00)
[2017-05-23] MEDS ORDERED: MIDAZOLAM 5 MG/5 ML VIAL IV ONE (09:00)
[2017-05-23] MEDS ORDERED: DEXAMETHASONE 10 MG/ML VIAL IV ONE (09:00)
[2017-05-23] MEDS ORDERED: PHENYLEPHRINE 10 MG/ML VIAL IV ONE (09:00)
[2017-05-23] MEDS ORDERED: ONDANSETRON 4 MG/2 ML VIAL IV PRN ×2 (09:37→11:28)
[2017-05-23] MEDS ORDERED: ATROPINE SULFATE 0.4 MG/ML VIAL IV PRN ×2 (09:37→11:28)
[2017-05-23] MEDS ORDERED: HYDROmorphone 2 MG/ML VIAL IV PRN ×3 (09:37→11:28)
[2017-05-23] MEDS ORDERED: KETOROLAC 15 MG/ML VIAL IV PRN (09:37)
[2017-05-23] MEDS ORDERED: PROMETHAZINE 25 MG/ML VIAL IV PRN (09:37)
[2017-05-23] MEDS ORDERED: FLUMAZENIL 0.1 MG/ML ML IV PRN ×2 (09:37→11:28)
[2017-05-23] MEDS ORDERED: METHOCARBAMOL 1,000 MG/10 ML VIAL IV PRN (09:37)
[2017-05-23] MEDS ORDERED: METOPROLOL TARTRATE 5 MG/5 ML VIAL IV PRN (09:37)
[2017-05-23] MEDS ORDERED: diphenhydrAMINE 50 MG/ML VIAL IV PRN ×2 (09:37→11:28)
[2017-05-23] MEDS ORDERED: ePHEDrine 50 MG/ML AMPUL IV PRN ×2 (09:37→11:28)
[2017-05-23] MEDS ORDERED: MEPERIDINE 25 MG/ML SYRINGE IV PRN (09:37)
[2017-05-23] MEDS ORDERED: IPRATROPIUM/ALBUTEROL 3 ML AMPUL.NEB NEB PRN (09:37)
[2017-05-23] MEDS ORDERED: BENZOCAINE/MENTHOL 1 LOZENGE PO PRN ×2 (09:37→11:28)
[2017-05-23] MEDS ORDERED: LACTATED RINGERS 1,000 ML IV SCH ×2 (09:45→11:28)
[2017-05-23] MEDS ORDERED: KETOROLAC 30 MG/ML VIAL IV PRN (09:45)
[2017-05-23] MEDS ORDERED: IOPAMIDOL 50 ML BOTTLE IJ ONE (10:18)
--- NOTE | 2017-05-23 10:54 | Brief Operative Note ---
Date of procedure: 05/23/17 Pre-op diagnosis: chronic cholecystitis ; biliary pancreatitis Post-op diagnosis: other (chronic cholecystitis;distal biliary stricture) Procedure: laparoscopic cholecystectomy;intraoperative cholangiogram Grafts/Implants: No Anesthesia: GETA Findings: dilated chronically inflamed gallbladder major dilation of cbd long distal cbd stricture Complications: none Surgeon: Ree Wiseman Estimated blood loss (cc): 10 Specimens Removed/Pathology: other (gallbladder) Condition: stable Disposition: PACU
[2017-05-23] MEDS: fentaNYL 100 MCG/2 ML VIAL IV PRN ×4 (10:57→11:12)
[2017-05-23] MEDS ORDERED: POTASSIUM CHLORIDE 40 MEQ in DEXTROSE 5% IN WATER 500 ML IV PRN (11:28)
[2017-05-23] MEDS ORDERED: MAGNESIUM SULFATE 2 GM/50 ML BAG IV PRN (11:28)
[2017-05-23] MEDS ORDERED: ALBUTEROL SULFATE 1 PUFF INHALER INH PRN (11:28)
[2017-05-23] MEDS ORDERED: ACETAMINOPHEN 325 MG TABLET PO PRN (11:28)
[2017-05-23] MEDS ORDERED: DEXTROSE 50% 50 ML VIAL IV PRN (11:28)
[2017-05-23] MEDS ORDERED: fentaNYL 100 MCG/2 ML VIAL IV PRN (11:28)
[2017-05-23] MEDS: FLUoxetine HCL 20 MG CAPSULE PO SCH (11:34)
[2017-05-23] MEDS: LISINOPRIL 5 MG TABLET PO SCH (11:34)
[2017-05-23] MEDS ORDERED: MIDAZOLAM 2 MG/2 ML VIAL ONE (12:59)
[2017-05-23] MEDS ORDERED: PROPOFOL 60 ML IV ONE ×3 (12:59→13:00)
--- NOTE | 2017-05-23 13:37 | XRay Report ---
CLINICAL INFORMATION: Extrahepatic bile duct dilatation. Intraoperative cholangiogram TECHNIQUE: 2.1 minutes fluoroscopy utilized. Intraoperative cholangiogram performed with spot films COMPARISON: Previous ultrasound dated 05/18/[address] scan dated 05/18/2017 FINDINGS: Status post cholecystectomy. Common hepatic duct and common bile duct are dilated. No intraluminal filling defects. No choledocholithiasis. There is narrowing of the distal common bile duct. Contrast material passes through the distal common bile duct into the duodenum. This narrowing is smooth without significant irregularity. Findings are most consistent with benign stricture. No definite evidence for neoplasm. IMPRESSION: 1. Dilated common hepatic duct and common bile duct. No intraluminal filling defects 2. Findings consistent with distal common bile duct stricture. Contrast material does pass into the duodenum. Interpreted and Authenticated by: Rm Klein 05/23/17
--- NOTE | 2017-05-23 16:14 | Internal Med Progress Note ---
Medical - PN: Subj Patient information: Note initiated : 05/23/17 at 4:12 pm Service Date, if different from initiated Date: [] Patient: Valerie De La Cruz 57 y/o F admitted on 05/18/17 for Pancreatic Problems/ Pancreatitis Flare. Chief Complaint: [] Interval history: 05/18- patient admitted with a flare of acute pancreatitis on top chronic pancreatitis. Lipase and amylase over 1999. CRP 0.7. Low Ransons and [place] score on admit. CT no evidence of necrosis or hemorrhage except for pancreatic head inflammation with common bile duct dilatation. abdominal ultrasound possible calcification in or contiguous with distal common bile duct near the head of pancreas. Radiology ERCP recommended however at this time and high risk of iatrogenic pancreatitis and hence continue pancreatic cooldown with conservative management. 05/19-patient doing better. Improved pain. No nausea or diarrhea or abdominal distention. No ecchymosis around the abdomen. No fever chills. Required IV opioids twice during the night. Ambulating. Continue NPO. even I's and O's. Status post 6 L crystalloids Per guidelines 05/20- patient started on clears however started experiencing abdominal pain shortly after taking morning medications. Made nothing by mouth again. Stop all oral feeds.low [place] score at 48 hour. No fever chills or worsening abdominal distention. Persistent ileus. No bowel movements.stable hemodynamics /vitals.CRP trending. 05/21- pain much improved. Patient did not tolerate Dobbhoff tube placement. However feels hungry and requesting clearance. Start trials of Jell-O's and broth. CRP uptrending at 13.1 from 0.7. stable labs hemodynamics and vitals. Possible discharge in 48 hours if clinically improving. 05/22 She is seen and examined, pain is much better, patient is able to tolerate p.o. diet well. The patient's labs however showed that the patient has worsening liver function test today. The patient has dilated CBD. I reviewed the findings with the GI doctor who recommended that patient have a cholecystectomy done given the recent episode of acute pancreatitis. The patient may have a stricture and made a papillotomy in the future surgical planning for cholecystectomy tomorrow morning may 23 Patient seen and examined, no acute overnight events, patient had cholecystectomy done successfully today. She also will be having an ERCP done for a biliary stricture. The patient denies any abdominal pain and is in good spirits Pertinent ROS: Denies headache, dizziness Denies chest pain, palpitations Denies cough or shortness of breath Denies abdominal pain, nausea or vomiting. - Constitutional Vitals: Vital Signs Temp Pulse Resp BP Pulse Ox 97.8 F 107 H 16 189/110 98 05/23/17 15:50 05/23/17 16:10 05/23/17 16:10 05/23/17 16:10 05/23/17 16:10 Period Temp Pulse Resp BP Sys/Goodman Pulse Ox Last 24 Hr 96.9 F-98.3 F 72-107 11-20 112-189/71-110 89-98 Intake and Output 05/23/17 05/23/17 05/23/17 05:59 13:59 21:59 Intake Total 400 / 400 1700 / 1700 Output Total 200 / 200 40 / 40 Balance 200 / 200 1660 / 1660 Weight 196 lb 8 oz Patient Weight 05/24/17 05:59 Weight 196 lb 8 oz Intake & Output: Intake & Output 05/23/17 05/23/17 05/23/17 05:59 13:59 21:59 Intake Total 400 / 400 1700 / 1700 Output Total 200 / 200 40 / 40 Balance 200 / 200 1660 / 1660 Weight 196 lb 8 oz Intake: Oral 400 / 400 IV - Manual Only 1700 / 1700 Output: Void Amount 200 / 200 Estimated Blood Loss 40 / 40 Exam: Constitutional; Afebrile, cooperative, alert, not in distress. Eyes- No icterus, , No periorbital swelling Ears- Ext ear normal, hearing normal to conversation. Neck- Midline trachea, supple Respiratory system: Air Entry equal on both sides, No crackles or wheezing, no rhonchi. CVS- Rate rhythm regular, S1,S2 heard, no gallop, no rub. Abdomen- Soft nontender abdomen, no organomegaly, no tenderness, no guarding or rigidity, DREDGE CAPTAIN- AOOx3, moving all extremities, no gross focal deficit noted. Medical - PN: Obj Da - Labs CBC & Chem 7: 05/23/17 05:30 05/23/17 05:30 Labs: Abnormal Lab Results 05/23/17 05/23/17 05/22/17 05:30 05:30 16:17 Seg Neutrophils % Lymphocytes % Reactive Lymphocytes 7 H Anion Gap BUN 21 H Glucose 179 H Phosphorus Total Bilirubin Direct Bilirubin GGT 89 H AST 55 H ALT 54 H Alkaline Phosphatase 139 H C-Reactive Protein Prealbumin Triglycerides 182 H Lipase 67 H 05/22/17 05/21/17 05/21/17 04:57 05:27 05:27 Seg Neutrophils % Lymphocytes % Reactive Lymphocytes Anion Gap BUN Glucose 148 H Phosphorus Total Bilirubin 1.4 H Direct Bilirubin 0.5 H GGT 80 H AST 55 H ALT 41 H Alkaline Phosphatase 145 H C-Reactive Protein 13.1 H Prealbumin 13.8 L Triglycerides 159 H Lipase 05/21/17 05/21/17 05:27 05:27 Seg Neutrophils % 79 H Lymphocytes % 14 L Reactive Lymphocytes Anion Gap 17.0 H BUN Glucose 118 H Phosphorus 2.4 L Total Bilirubin 1.2 H Direct Bilirubin 0.4 H GGT 52 H AST ALT Alkaline Phosphatase 134 H C-Reactive Protein Prealbumin Triglycerides Lipase Meds: Medications Acetaminophen (Tylenol) 650 mg PO Q4-6HP PRN PRN Reason: PAIN/FEVER > 101 Hydrocodone Bitart/Acetaminophen ([place] 5/325mg) 1 - 2 tab PO Q4HP PRN PRN Reason: PAIN LEVEL 3-6 Albuterol Sulfate (Ventolin) 2 puff INH Q4-6HP PRN PRN Reason: cough, wheeze, SOB Chlorhexidine Gluconate (Peridex) 15 ml SWABMOUTH BID [facility] Dextrose (Dextrose 50%) 0 ml IV UD PRN PRN Reason: Hypoglycemia Diagnostic Test (Pha) (Accu-Chek) 1 each FS ACHS [facility] Last Admin: 05/23/17 12:33 Dose: 1 each Docusate Sodium (Colace) 100 mg PO BID [facility] Fluoxetine HCl (Prozac) 20 mg PO DAILY [facility] Gabapentin (Neurontin) 1,200 mg PO HS [facility] Hydromorphone HCl (Dilaudid) 0 mg IV Q2HP PRN PRN Reason: PAIN LEVEL > 6 Potassium Chloride 40 meq/ (Dextrose) 520 mls @ 130 mls/hr IV UD PRN PRN Reason: K+ = or < 3.5 Magnesium Sulfate (Magnesium Sulfate) 2 gm in 50 mls @ 50 mls/hr IV UD PRN PRN Reason: MG = or < 1.7 Insulin Human Lispro (Humalog) 0 unit SQ ACHS [facility] PRN Reason: Protocol Last Admin: 05/23/17 12:34 Dose: 3 unit Iron Carb/Multivit/[place]/Folic Acid (Multivitamin W/Minerals) 1 tab PO DAILY [facility] Lisinopril (Zestril) 5 mg PO QDAY [facility] Ondansetron HCl (Zofran) 4 mg IV Q4-6HP PRN PRN Reason: Nausea And Vomiting Pantoprazole Sodium (Protonix) 40 mg IV QAMAC [facility] Sodium Chloride (Saline Flush) 10 ml IV Q8 [facility] Last Admin: 05/23/17 12:41 Dose: 10 ml Medical - PN: A/P - Time Spent With Patient Total time spent is greater than 50% in coordination of care (as documented) at patient's floor/unit and/or counseling patient: - Narrative A/P Narrative: A/P Acute on chr pancreatitis Acute billiary pancreatitis Dialated Common bile duct Abnormal liver function tests h/o etoh abuse anxiety disorder Asthma disorder Diabetes Mellitus Plan Continue to monitor continue insulin for glucose control Status post cholecystectomy status post ERCP If remained stable can be discharged home tomorrow Medical - PN: Qual - VTE Deep Vein Thrombosis/Pulmonary Embolism Present on Admission: No
[2017-05-23] MEDS ORDERED: GENTAMICIN SULFATE 800 MG/20 ML VIAL IR ONE (16:15)
[2017-05-23] MEDS ORDERED: GABAPENTIN 400 MG CAPSULE PO SCH (21:00)
[2017-05-23] MEDS: HYDROcodone/APAP 5/325MG TABLET PO PRN (21:31)
[2017-05-24] MEDS: HYDROcodone/APAP 5/325MG TABLET PO PRN ×3 (05:11→14:48)
[2017-05-24] MEDS: 0.9 % SODIUM CHLORIDE 10 ML SYRINGE IV SCH ×2 (05:12→12:51)
[2017-05-24 06:07] LABS: Mean Cell Volume 88.9 fL (80.0-100.0); Mean Corpuscular Hemoglobin 30.3 pg (26.0-34.0); Platelet Count 180 K/mcL (140-440); RBC 4.28 M/mcL (4.00-5.20); Red Cell Distribution Width 13.9 % (11.5-14.5)
[2017-05-24 06:43] LABS: ALT/SGPT 79 U/l (0-40); Albumin 3.8 gm/dL (3.2-5.2); Albumin/Globulin Ratio 1.7 (1.0-2.3); Alkaline Phosphatase 129 U/L (39-117); Amylase 64 U/L (28-100); Bilirubin,Direct 0.3 mg/dL (0.0-0.3); Blood Urea Nitrogen 14 mg/dl (6-20); Gamma Glutamyl Transpeptidase 114 U/L (5-36); Lipase 56 U/L (7-60); Uric Acid 2.9 mg/dL (2.5-8.0)
[2017-05-24] MEDS ORDERED: PANTOPRAZOLE 40 MG VIAL IV SCH (07:30)
[2017-05-24] MEDS ORDERED: POTASSIUM CHLORIDE 40 MEQ in DEXTROSE 5% IN WATER 500 ML IV ONE (07:42)
[2017-05-24] MEDS ORDERED: MAGNESIUM SULFATE 2 GM/50 ML BAG IV ONE (07:42)
[2017-05-24] MEDS: INSULIN LISPRO 1 UNIT/0.01 ML UNIT SQ SCH ×2 (07:52→11:37)
[2017-05-24 08:33] LABS: Eosinophils % (Manual) 1 % (0-7); Lymphocytes % 5 % (15-49); Monocytes % (Manual) 10 % (1-12); Platelet Estimate NORMAL (NORMAL); RBC Morphology NORMAL (NORMAL); Segmented Neutrophils % 83 % (38-78)
[2017-05-24] MEDS ORDERED: FLUoxetine HCL 20 MG CAPSULE PO SCH (09:00)
[2017-05-24] MEDS ORDERED: LISINOPRIL 5 MG TABLET PO SCH (09:00)
[2017-05-24] MEDS ORDERED: MULTIVIT,THER IRON,CA,FA & MIN 1 TABLET PO SCH (09:00)
[2017-05-24] MEDS: DOCUSATE SODIUM 100 MG CAPSULE PO SCH (09:11)
[2017-05-24] MEDS: CHLORHEXIDINE GLUCONATE 1 ML ORAL.SOL SWABMOUTH SCH (09:12)
[2017-05-24] MEDS ORDERED: POTASSIUM CHLORIDE 20 MEQ PACKET PO ONE (09:42)
[2017-05-24] MEDS ORDERED: MAGNESIUM OXIDE 400 MG TABLET PO SCH (09:45)
--- NOTE | 2017-05-24 13:00 | Discharge Summary ---
<Enzo Husain - Last Filed: 05/24/17 12:58> Medical - DS: Prov Patient information: Note initiated : 05/24/17 at 12:58 pm Service Date, if different from initiated Date: [] Patient: Valerie De La Cruz 57 y/o F admitted on 05/18/17 for Pancreatic Problems/ Pancreatitis Flare. Chief Complaint: [] Date of admission: 05/18/17 15:00 Discharge date: 05/24/17 Primary care physician: Alexander Arriaga Admitting clinician: Roni Sanchez Consults: 05/18/17 14:07 Consult to Physician [CONS] Stat Comment: Consulting Provider: Roni Sanchez Reason For Exam: Physician to Consult 05/22/17 12:47 Consult to Physician [CONS] Routine Comment: Consulting Provider: Gilda Ambrocio Reason For Exam: Physician to Consult 05/22/17 14:56 Consult to Physician [CONS] Routine Comment: Consulting Provider: Ree Wiseman Reason For Exam: Physician to Consult Discharging clinician: Enzo Husain Medical - DS: Meds - Discharge Medications Active and Home Medications: Home Medications Multivitamin 1 tab PO QDAY 09/01/14 [History Confirmed 05/18/17 Last Taken 01/16] fluoxetine 20 mg capsule 20 mg PO QDAY #90 cap 11/13/16 [Rx Confirmed 05/18/17 Last Taken Unknown] albuterol sulfate HFA 90 mcg/actuation aerosol inhaler 2 puff INHALATION Q4-6H PRN #18 g 02/10/17 [Rx Confirmed 05/18/17 Last Taken Unknown] lisinopril 5 mg tablet 5 mg PO QDAY #90 tab 02/10/17 [Rx Confirmed 05/18/17 Last Taken Unknown] lovastatin 20 mg tablet 20 mg PO QPM #90 tab 02/10/17 [Rx Confirmed 05/18/17 Last Taken Unknown] Gabapentin 1,200 mg PO QHS 05/18/17 [History Confirmed 05/18/17 Last Taken Unknown] Gabapentin 600 mg PO BID 05/18/17 [History Confirmed 05/18/17 Last Taken Unknown ] Hydrocodone/APAP 7.5/325Mg [Proctor 7.5-325Mg] 1 tab PO Q6HP PRN 05/18/17 [ History Confirmed 05/18/17 Last Taken Unknown] Nortriptyline HCl [Pamelor] 25 mg PO QHS 05/18/17 [History Confirmed 05/18/17 Last Taken Unknown] Omeprazole [Prilosec] 20 mg PO BID 05/18/17 [History Confirmed 05/18/17 Last Taken Unknown] metFORMIN HCL [Metformin HCl ER] 1,000 mg PO QPM 05/18/17 [History Confirmed 01/25 Last Taken Unknown] Medical - DS: Hosp Hospital course: Ms De La Cruz is a 57 yr female patient admitted with a flare of acute pancreatitis on top chronic pancreatitis. Lipase and amylase over 1999. CRP 0.7. Low [place] and [place] score on admit. CT no evidence of necrosis or hemorrhage except for pancreatic head inflammation with common bile duct dilatation. abdominal ultrasound possible calcification in or contiguous with distal common bile duct near the head of pancreas. The patient was treated with conservative treatment, and she responded to treatment. She had dilated CBD on CT And USG. The patient had normal lft on presentation, however her lft started to trend up along with her CRP, this in light of dilated cbd warranted further investigations. GI and gen surgery were consulted Patient usg was concerning for sludge in the gall bladder, patient was advised cholecystectomy and intra operative cholangiogram The patient agreed to same and underwent cholecystectomy by Dr Wiseman. She tolerated the procedure well The intra op cholangiogram showed that she had papillary stricture, patient therefore underwent ERCP with papillotomy by Dr. Serrano The patient still had some pain in the postop. But she attributed the pain to her gallbladder surgery rather than the pancreatitis. The patient is able to tolerate diet very well is ambulatory and is in good spirits wanted to be discharged home The patient will be discharged home with follow-up with Dr. Wiseman and primary care physician. No changes in the home medications have been done Discharge diagnosis: billary pancreatitis, - Time Spent with Patient Total time spent providing and/or coordinating discharge services: Greater than 30 minutes Medical - DS: Exam - Constitutional Vitals: Vital Signs Temp Pulse Pulse Resp BP BP BP 05/24/17 11:31 96.9 F L 16 131/76 05/24/17 08:00 05/24/17 06:30 97.4 F 16 146/84 05/24/17 04:00 98.5 F 89 14 155/89 05/24/17 00:00 99.5 F H 90 16 132/75 05/23/17 20:00 98.7 F 98 H 18 160/94 05/23/17 17:40 96 H 136/85 05/23/17 17:09 93 H 131/85 05/23/17 16:39 105 H 129/86 05/23/17 16:25 105 H 134/83 05/23/17 16:15 101 H 16 136/85 05/23/17 16:10 107 H 16 189/110 05/23/17 16:05 99 H 16 146/85 05/23/17 16:00 97.8 F 101 H 16 136/85 05/23/17 15:50 97.8 F 107 H 16 175/110 05/23/17 15:40 72 16 145/71 05/23/17 13:42 89 16 137/87 05/23/17 13:13 82 Pulse Ox 05/24/17 11:31 98 05/24/17 08:00 93 05/24/17 06:30 93 05/24/17 04:00 94 05/24/17 00:00 94 05/23/17 20:00 95 05/23/17 17:40 96 05/23/17 17:09 93 05/23/17 16:39 95 05/23/17 16:25 93 05/23/17 16:15 94 05/23/17 16:10 98 05/23/17 16:05 94 05/23/17 16:00 94 05/23/17 15:50 98 05/23/17 15:40 92 05/23/17 13:42 92 05/23/17 13:13 Intake and Output 05/23/17 05/24/17 05/24/17 21:59 05:59 13:59 Intake Total 960 / 960 300 / 300 1344 / 1344 Output Total 1150 / 1150 350 / 350 800 / 800 Balance -190 / -190 -50 / -50 544 / 544 Intake: IV 24 / 24 Potassium Chloride 40 Meq In 24 / 24 Dextrose 5% in Water 500 ml @ 130 mls/hr IV ONCE ONE Rx#: [id number] Oral 960 / 960 300 / 300 1320 / 1320 Output: Void Amount 1150 / 1150 350 / 350 800 / 800 Other: Meal soup and ice cream Breakfast Percent of Meal Consumed 100% 100% Feeding Ability Independent Independent # Voids 1 Weight 202 lb 1.6 oz 202 lb 1.6 oz Patient Weight 05/25/17 05:59 Weight 202 lb 1.6 oz Additional comments: Constitutional; Afebrile, cooperative, alert, not in distress. Eyes- No icterus, , No periorbital swelling Ears- Ext ear normal, hearing normal to conversation. Neck- Midline trachea, supple Respiratory system: Air Entry equal on both sides, No crackles or wheezing, no rhonchi. CVS- Rate rhythm regular, S1,S2 heard, no gallop, no rub. WORKGROUP LEADER- AOOx3, moving all extremities, no gross focal deficit noted. Medical - DS: Data Labs on day of discharge: Labs from last 24 hours 05/24/17 05/24/17 04:48 04:48 WBC 7.1 RBC 4.28 Hgb 13.0 Hct 38.1 MCV 88.9 MCH 30.3 MCHC 34.0 RDW 13.9 Plt Count 180 MPV 8.4 Total Counted 100 Seg Neutrophils % 83 H Band Neutrophils % Not Reportable Lymphocytes % 5 L Monocytes % (Manual) 10 Eosinophils % (Manual) 1 Reactive Lymphocytes 1 Platelet Estimate Normal RBC Morphology Normal Sodium 141 Potassium 3.3 Chloride 102 Carbon Dioxide 28 Anion Gap 11.0 BUN 14 Creatinine 0.8 GFR Calculation 82 Glucose 163 H Uric Acid 2.9 Calcium 8.9 Phosphorus 3.4 Magnesium 1.7 Total Bilirubin 0.9 Direct Bilirubin 0.3 GGT 114 H AST 68 H ALT 79 H Alkaline Phosphatase 129 H Lactate Dehydrogenase 217 Total Protein 6.1 Albumin 3.8 Globulin 2.3 Albumin/Globulin Ratio 1.7 Triglycerides 128 Amylase 64 Lipase 56 Medical - DS: A/P - Patient/Caregiver Discharge Instructions Activity: increase activity as tolerated Diet: Consistent Carbohydrate Additional Instructions: Follow-up with Dr. Wiseman in 2 week Go to the emergency room if you notice any worsening abdominal pain, fever or chest pain shortness of breath or any other acute concerning symptom Follow-up with PCP in 1-2 weeks Follow-up with the GI doctor as previously scheduled - Follow up Plan Follow up with: Alexander Arriaga PA-C [Primary Care Provider] - Disposition: Home, Self-Care Prognosis: Fair Rehab Potential: Fair I certify that the patient requires SNF services: No Overall status at discharge: patient is progressing back to baseline Medical - DS: Qual - VTE Deep Vein Thrombosis/Pulmonary Embolism Present on Admission: No <Ree Wiseman - Last Filed: 05/24/17 13:50> Medical - DS: Prov Patient information: Note initiated : 05/24/17 at 1:49 pm Service Date, if different from initiated Date: [] Patient: Valerie De La Cruz 57 y/o F admitted on 05/18/17 for Pancreatic Problems/ Pancreatitis Flare. Chief Complaint: [] Date of admission: 05/18/17 15:00 Primary care physician: Alexander Arriaga Consults: 05/18/17 14:07 Consult to Physician [CONS] Stat Comment: Consulting Provider: Roni Sanchez Reason For Exam: Physician to Consult 05/22/17 12:47 Consult to Physician [CONS] Routine Comment: Consulting Provider: Gilda Ambrocio Reason For Exam: Physician to Consult 05/22/17 14:56 Consult to Physician [CONS] Routine Comment: Consulting Provider: Ree Wiseman Reason For Exam: Physician to Consult Medical - DS: Meds - Discharge Medications Active and Home Medications: Home Medications Multivitamin 1 tab PO QDAY 09/01/14 [History Confirmed 05/18/17 Last Taken 01/16] fluoxetine 20 mg capsule 20 mg PO QDAY #90 cap 11/13/16 [Rx Confirmed 05/18/17 Last Taken Unknown] albuterol sulfate HFA 90 mcg/actuation aerosol inhaler 2 puff INHALATION Q4-6H PRN #18 g 02/10/17 [Rx Confirmed 05/18/17 Last Taken Unknown] lisinopril 5 mg tablet 5 mg PO QDAY #90 tab 02/10/17 [Rx Confirmed 05/18/17 Last Taken Unknown] lovastatin 20 mg tablet 20 mg PO QPM #90 tab 02/10/17 [Rx Confirmed 05/18/17 Last Taken Unknown] Gabapentin 1,200 mg PO QHS 05/18/17 [History Confirmed 05/18/17 Last Taken Unknown] Gabapentin 600 mg PO BID 05/18/17 [History Confirmed 05/18/17 Last Taken Unknown ] Hydrocodone/APAP 7.5/325Mg [Proctor 7.5-325Mg] 1 tab PO Q6HP PRN 05/18/17 [ History Confirmed 05/18/17 Last Taken Unknown] Nortriptyline HCl [Pamelor] 25 mg PO QHS 05/18/17 [History Confirmed 05/18/17 Last Taken Unknown] Omeprazole [Prilosec] 20 mg PO BID 05/18/17 [History Confirmed 05/18/17 Last Taken Unknown] metFORMIN HCL [Metformin HCl ER] 1,000 mg PO QPM 05/18/17 [History Confirmed 01/25 Last Taken Unknown] Medical - DS: Hosp Hospital course: Mr. De La Cruz is a 57 year old F - Time Spent with Patient Total time spent providing and/or coordinating discharge services: Medical - DS: Exam - Constitutional Vitals: Vital Signs Temp Pulse Pulse Resp BP BP BP 05/24/17 11:31 96.9 F L 16 131/76 05/24/17 08:00 05/24/17 06:30 97.4 F 16 146/84 05/24/17 04:00 98.5 F 89 14 155/89 05/24/17 00:00 99.5 F H 90 16 132/75 05/23/17 20:00 98.7 F 98 H 18 160/94 05/23/17 17:40 96 H 136/85 05/23/17 17:09 93 H 131/85 05/23/17 16:39 105 H 129/86 05/23/17 16:25 105 H 134/83 05/23/17 16:15 101 H 16 136/85 05/23/17 16:10 107 H 16 189/110 05/23/17 16:05 99 H 16 146/85 05/23/17 16:00 97.8 F 101 H 16 136/85 05/23/17 15:50 97.8 F 107 H 16 175/110 05/23/17 15:40 72 16 145/71 Pulse Ox 05/24/17 11:31 98 05/24/17 08:00 93 05/24/17 06:30 93 05/24/17 04:00 94 05/24/17 00:00 94 05/23/17 20:00 95 05/23/17 17:40 96 05/23/17 17:09 93 05/23/17 16:39 95 05/23/17 16:25 93 05/23/17 16:15 94 05/23/17 16:10 98 05/23/17 16:05 94 05/23/17 16:00 94 05/23/17 15:50 98 05/23/17 15:40 92 Intake and Output 05/23/17 05/24/17 05/24/17 21:59 05:59 13:59 Intake Total 960 / 960 300 / 300 1344 / 1344 Output Total 1150 / 1150 350 / 350 800 / 800 Balance -190 / -190 -50 / -50 544 / 544 Intake: IV 24 / 24 Potassium Chloride 40 Meq In 24 / 24 Dextrose 5% in Water 500 ml @ 130 mls/hr IV ONCE ONE Rx#: [id number] Oral 960 / 960 300 / 300 1320 / 1320 Output: Void Amount 1150 / 1150 350 / 350 800 / 800 Other: Meal soup and ice cream Breakfast Percent of Meal Consumed 100% 100% Feeding Ability Independent Independent # Voids 1 Weight 202 lb 1.6 oz 202 lb 1.6 oz Patient Weight 05/25/17 05:59 Weight 202 lb 1.6 oz Medical - DS: Data Labs on day of discharge: Labs from last 24 hours 05/24/17 05/24/17 04:48 04:48 WBC 7.1 RBC 4.28 Hgb 13.0 Hct 38.1 MCV 88.9 MCH 30.3 MCHC 34.0 RDW 13.9 Plt Count 180 MPV 8.4 Total Counted 100 Seg Neutrophils % 83 H Band Neutrophils % Not Reportable Lymphocytes % 5 L Monocytes % (Manual) 10 Eosinophils % (Manual) 1 Reactive Lymphocytes 1 Platelet Estimate Normal RBC Morphology Normal Sodium 141 Potassium 3.3 Chloride 102 Carbon Dioxide 28 Anion Gap 11.0 BUN 14 Creatinine 0.8 GFR Calculation 82 Glucose 163 H Uric Acid 2.9 Calcium 8.9 Phosphorus 3.4 Magnesium 1.7 Total Bilirubin 0.9 Direct Bilirubin 0.3 GGT 114 H AST 68 H ALT 79 H Alkaline Phosphatase 129 H Lactate Dehydrogenase 217 Total Protein 6.1 Albumin 3.8 Globulin 2.3 Albumin/Globulin Ratio 1.7 Triglycerides 128 Amylase 64 Lipase 56 Medical - DS: A/P - Problem Maintenance (1) Biliary acute pancreatitis Status: Acute (2) Alcoholic liver disease Status: Chronic (3) Anxiety with depression Status: Chronic (4) Diabetes mellitus Status: Chronic Qualifiers: Diabetes mellitus type: type 2 Diabetes mellitus complication status: without complication Diabetes mellitus supervisor intermediates insulin use: without supervisor intermediates use Qualified Code(s): E11.9 - Type 2 diabetes mellitus without complications
--- NOTE | 2017-05-24 13:49 | General Surgery Progress Note ---
Subjective Patient reports: feels better, pain is less, tolerating a regular diet, flatus, bowel movement, afebrile Narrative: Note initiated : 05/24/17 at 1:46 pm Service Date, if different from initiated Date: [] Patient: Valerie De La Cruz 57 y/o F admitted on 05/18/17 for Pancreatic Problems/ Pancreatitis Flare. Chief Complaint: [Patient is doing well status post laparoscopic cholecystectomy and ERCP with papillotomy and stent placement. She has the anticipated incisional discomfort. She is tolerated diet. Her amylase and lipase are normal. Patient states that she feels much better than she did at the time of admission.] Objective Temp Pulse Resp BP Pulse Ox 96.9 F L 89 16 131/76 98 05/24/17 11:31 05/24/17 04:00 05/24/17 11:31 05/24/17 11:31 05/24/17 11:31 - Additional Data Intake & Output - Last 24 hours: Intake & Output 05/22/17 05/23/17 05/24/17 05/25/17 05:59 05:59 05:59 05:59 Intake Total 2160 / 2160 880 / 880 2960 / 2960 1344 / 1344 Output Total 3400 / 3400 400 / 400 1540 / 1540 800 / 800 Balance -1240 / -1240 480 / 480 1420 / 1420 544 / 544 Weight 198 lb 8 oz 196 lb 8 oz 202 lb 1.6 oz 202 lb 1.6 oz - General physical appearance well developed, well nourished, no distress - Eyes PERRL, normal ocular movement - ENT normal pinna, normal nares, normal mucosa, no hearing loss, no congestion - Neck no masses, no bruits, trachea midline, no lymphadectomy, no venous distension - Respiratory normal expansion, normal respiratory effort, clear to percussion, clear to auscultation - Cardiovascular Cardiovascular exam: Present: normal rate and rhythm, RRR, +S1, +S2. Absent: JVD, tachycardia - Abdomen tender (Minimal tenderness along incision sites but otherwise unremarkable), bowel sounds (present), surgical scars (none), masses (none) - Integumentary no rash, no growths, no abnormal pigmentation - Neurologic normal coordination, normal sensation - Musculoskeletal normal gait, normal posture - Psychiatric oriented to time, oriented to person, oriented to place, speech is normal, memory intact - Labs 05/24/17 04:48 05/24/17 04:48 Diabetes panel 05/24/17 Range/Units 04:48 Sodium 141 (133-145) mmol/L Potassium 3.3 (3.3-5.1) mmol/L Chloride 102 (96-108) mmol/L Carbon Dioxide 28 (22-30) mmol/L BUN 14 (6-20) mg/dl Creatinine 0.8 (0.6-1.1) mg/dl Glucose 163 H (70-105) mg/dL Calcium 8.9 (8.6-10.4) mg/dl AST 68 H (0-37) U/l ALT 79 H (0-40) U/l Alkaline Phosphatase 129 H (39-117) U/L Total Protein 6.1 (5.9-8.4) gm/dL Albumin 3.8 (3.2-5.2) gm/dL Triglycerides 128 (<150) mg/dl Calcium panel 05/24/17 Range/Units 04:48 Calcium 8.9 (8.6-10.4) mg/dl Phosphorus 3.4 (2.7-4.5) mg/dL Albumin 3.8 (3.2-5.2) gm/dL Pituitary panel 05/24/17 Range/Units 04:48 Sodium 141 (133-145) mmol/L Potassium 3.3 (3.3-5.1) mmol/L Chloride 102 (96-108) mmol/L Carbon Dioxide 28 (22-30) mmol/L BUN 14 (6-20) mg/dl Creatinine 0.8 (0.6-1.1) mg/dl Glucose 163 H (70-105) mg/dL Calcium 8.9 (8.6-10.4) mg/dl Adrenal panel 05/24/17 Range/Units 04:48 Sodium 141 (133-145) mmol/L Potassium 3.3 (3.3-5.1) mmol/L Chloride 102 (96-108) mmol/L Carbon Dioxide 28 (22-30) mmol/L BUN 14 (6-20) mg/dl Creatinine 0.8 (0.6-1.1) mg/dl Glucose 163 H (70-105) mg/dL Calcium 8.9 (8.6-10.4) mg/dl Total Bilirubin 0.9 (0.0-1.0) mg/dL AST 68 H (0-37) U/l ALT 79 H (0-40) U/l Alkaline Phosphatase 129 H (39-117) U/L Total Protein 6.1 (5.9-8.4) gm/dL Albumin 3.8 (3.2-5.2) gm/dL Assessment and Plan (1) Biliary acute pancreatitis Status: Acute Assessment and plan: Patient is stable and is cleared for discharge. She is to follow-up in my office in 2 weeks. She was given hydrocodone 10 /325 #30 tablets Current Visit: Yes (2) Alcoholic liver disease Status: Chronic Current Visit: Yes (3) Anxiety with depression Status: Chronic Current Visit: Yes (4) Diabetes mellitus Status: Chronic Current Visit: Yes - Time Spent With Patient Total time spent is greater than 50% in coordination of care (as documented) at patient's floor/unit and/or counseling patient:
--- NOTE | 2017-05-26 13:46 | Operative Note ---
DATE OF OPERATION: 05/23/2017 PREOPERATIVE DIAGNOSIS: Chronic cholecystitis, biliary pancreatitis. POSTOPERATIVE DIAGNOSIS: Chronic cholecystitis, distal common bile duct stricture. PROCEDURE: Laparoscopic cholecystectomy with intraoperative cholangiogram. SURGEON: Ree Wiseman MD FINDINGS: Dilated chronically inflamed gallbladder, major dilation of the common bile duct with a long distal common bile duct stricture emptying into the duodenum. DESCRIPTION OF PROCEDURE: Under general anesthesia, the patient's abdomen was prepped and draped in a sterile field. A timeout procedure was carried out as per protocol. A supraumbilical incision was made and Veress needle was inserted uneventfully. Abdomen was insufflated with 2 liters of CO2. A 12 mm port was placed. Laparoscope was placed. A dilated chronically inflamed gallbladder was noted. Under videoscopic guidance a 12 mm port and two 5 mm ports were placed in the right subcostal region. Cystic duct and cystic artery were sequentially dissected. The cystic artery anterior branch was dissected onto the wall of the gallbladder, clipped with 4 clips and divided. The cystic duct was then dissected. It was very large and thickened. It was followed back to the gallbladder where it was clipped with a single clip. An incision was made in the duct and a catheter was placed transabdominally. The catheter was then positioned in the cystic duct and secured with two saundra. A cholangiogram was done. This showed massive dilation of the common bile duct with a long distal common bile duct stricture. There were no filling defects. The catheter was removed and the cystic duct was clipped with 5 clips distally and divided. The posterior branch of the cystic artery was dissected, clipped with 3 clips and divided. The gallbladder was then from the infrahepatic bed using electrocautery. It was placed in an Endopouch and retrieved. Irrigation was carried out. There was no major bleeding or bile leak. CO2 was allowed to escape from the abdomen and the ports were removed. Fascia at the umbilicus was closed with interrupted 0 Vicryl. The skin incisions were closed with saundra. The patient tolerated the procedure well. She was awakened and transferred to a bed and taken to the Postanesthetic Care Unit in stable satisfactory condition. LCS:guadalupe Job ID: [id number] Doc ID: [id number] Ree Wiseman M.D.
--- NOTE | 2017-05-26 14:46 | Surgical Pathology Report ---
HISTOLOGY SPECIMEN MICROSCOPIC DIAGNOSIS GALLBLADDER, CHOLECYSTECTOMY: -- ACUTE AND CHRONIC CHOLECYSTITIS. (RLF:djf) PROCEDURAL IMPRESSION Biliary acute pancreatitis. GROSS DESCRIPTION Received in formalin labeled with the patient information, is a purple-biggs gallbladder which weighs 24 grams and measures 3.0 x 3.3 x 7.0 cm. The mucosa is biggs and velvety. The wall is up to 0.5 cm thick. Stones are not identified. Military Science Teacher sections submitted - one cassette. (RAD:sln) Electronically Signed by: Letty Jiang M.D.
--- NOTE | 2017-06-03 08:15 | ERCP Procedure Note ---
ERCP Procedure Notes - Procedure Information Patient information: Note initiated : 06/03/17 at 8:12 am Service Date: 05/23/17 Patient: Valerie De La Cruz 57 y/o F admitted on 05/18/17 for Pancreatic Problems/ Pancreatitis Flare. Pre-op diagnosis general: Biliary stricture. Post-op diagnosis general: Biliary stricture. Procedure narrative: The procedures, alternatives and risks were discussed with the patient and the patient's questions were answered. With endoscopist-administered intravenous sedation, the Olympus side viewing operating duodenoscope was introduced into the esophagus and advanced to the second part of the duodenum without difficulty The ampulla of Vater has undergone a previous papillotomy. The bile duct was selectively cannulated taking care to avoid the pancreatic duct and cholangiogram obtained. The bile duct was markedly stenotic proximally and markedly dilated. A 10 marshallese-5 cm stent was placed in the bile duct. The scope was withdrawn. Assessment: Biliary stricture.
--- NOTE | 2017-09-07 21:27 | XRay Report ---
CLINICAL INFORMATION: Common bile duct narrowing COMPARISON: None. FINDINGS: , The distal common bile duct was cannulated and injected demonstrating moderate dilatation due to a distal biliary stricture. A 10 Latvian 5 cm stent was successfully placed across the bile duct resulting in good bile drainage IMPRESSION: Distal common bile duct stricture which was successfully stented Interpreted and Authenticated by: Rm Parra 09/07/17
== END 2017-05-24 14:45 | disposition home or self-care (01) | DRG 417 ==
LOC: ED 11:02 → MEDSUR 15:00
PROVIDERS: ADMIT Internal Medicine; ATTEND Internal Medicine

== ENCOUNTER 2017-10-15 09:10 | Observation (INO) ==
[2017-10-15] MEDS ORDERED: IOPAMIDOL 100 ML BOTTLE IV ONE (09:11)
[2017-10-15] MEDS ORDERED: ACETAMINOPHEN 325 MG TABLET PO PRN (09:15)
[2017-10-15 10:00] LABS: Basophils # (Auto) 0 K/mcL (0.0-0.3); Basophils % (Auto) 0.3 % (0.0-2.0); Eosinophils # (Auto) 0 K/mcL (0.0-0.7); Eosinophils % (Auto) 0 % (0.0-7.0); Lymphocytes # (Auto) 1.2 K/mcL (1.5-4.8); Lymphocytes % (Auto) 8.6 % (15.5-49.0); Mean Cell Volume 87.8 fL (80.0-100.0); Mean Corpuscular HGB Conc 34.1 g/dL (31.0-36.0); Mean Corpuscular Hemoglobin 29.9 pg (26.0-34.0); Monocytes # (Auto) 0.7 K/mcL (0.1-0.9); Monocytes % (Auto) 5.1 % (1.0-12.0); Platelet Count 242 K/mcL (140-440); RBC 5.51 M/mcL (4.00-5.20); Red Cell Distribution Width 13.3 % (11.5-14.5)
[2017-10-15 10:21] LABS: ALT/SGPT 12 U/l (0-40); Albumin 4.5 gm/dL (3.2-5.2); Albumin/Globulin Ratio 1.4 (1.0-2.3); Alkaline Phosphatase 172 U/L (39-117); Amylase 803 U/L (28-100); Bilirubin,Direct < 0.2 mg/dL (0.0-0.3); Blood Urea Nitrogen 16 mg/dl (6-20); Gamma Glutamyl Transpeptidase 40 U/L (5-36); Uric Acid 3.4 mg/dL (2.5-8.0)
[2017-10-15] MEDS ORDERED: DEXTROSE 50% 50 ML VIAL IV PRN (10:27)
[2017-10-15] MEDS: ONDANSETRON 4 MG/2 ML VIAL IV PRN ×2 (10:29→18:44)
[2017-10-15] MEDS: HYDROmorphone 2 MG/ML VIAL IV PRN ×4 (10:29→23:18)
[2017-10-15] MEDS: 0.9 % SODIUM CHLORIDE 1,000 ML IV SCH ×2 (10:37→22:12)
[2017-10-15 10:42] LABS: Lipase 1938 U/L (7-60)
[2017-10-15] MEDS: INSULIN LISPRO 1 UNIT/0.01 ML UNIT SQ SCH ×3 (11:56→23:28)
--- NOTE | 2017-10-15 12:12 | Internal Med History&Physical ---
Medical - H&P: [facility] Patient information: Note initiated : 10/15/17 at 12:09 pm Service Date, if different from initiated Date: [] Patient: Valerie De La Cruz a 57 y/o F admitted on 10/15/17 for Pancreatitis Post ERCP. Chief Complaint: [] History of present illness: Ms. De La Cruz is a 57 year old F with h/o billiary pancreatitis, h/o pancreatic stent exchange done yesterday. Postprocedure patient developed abdominal pain, epigastric region radiating to the back associated with nausea worse with eating food slightly better by rest. Patient's pain was constant. She has had history of pancreatitis before pain was not getting better. She called her GI providers in the asked her to come to the hospital. She has been admitted to the hospital with a diagnosis of post ERCP pancreatitis. Patient denies any alcohol use. Patient denies any fever chills chest pain shortness of breath no headache no dizziness she has had some nausea and vomiting intermittent constipation no diarrhea. Abdominal pain as described above. No urinary complaints no new joint pains no skin rashes. Patient still smokes educated All systems: reviewed and no additional remarkable complaints except as stated ( as per HPI rest neg) Medical - H&P: PMH Medical history: Medical History (Last Reviewed 06/09/17 @ 09:21 by Madelyn Zimmerman CMA) LILA on CPAP (Chronic) Community acquired pneumonia (Chronic) Urinary, incontinence, stress female (Chronic) Urinary incontinence (Chronic) Urinary frequency (Chronic) Tobacco abuse (Chronic) Sleep apnea, obstructive (Chronic) Rectocele (Chronic) Personal history of mental disorder (Chronic) Pap smear of vagina with ASC-US (Chronic) Obesity (Chronic) Nocturia (Chronic) Migraine (Chronic) Menopausal syndrome (Chronic) Liver disorder (Chronic) Hyperlipidemia (Chronic) Hiatal hernia (Chronic) Gastroesophageal reflux (Chronic) Dyslexia (Chronic) Diverticulitis of colon (Chronic) DM (diabetes mellitus), type 2, uncontrolled (Chronic) DM type 2 (diabetes mellitus, type 2) (Chronic) Depressive disorder (Chronic) Cystocele, midline (Chronic) Colon polyp (Chronic) Chronic pancreatitis (Chronic) Carpal tunnel syndrome (Chronic) Barretts esophagus (Chronic) Asthma (Chronic) Anxiety disorder (Chronic) Abdominal pain (Chronic) Surgical history: Past Surgical History (Last Updated 06/09/17 @ 09:22 by Madelyn Zimmerman CMA) History of tubal ligation (Chronic) History of oophorectomy (Chronic) History of esophagogastroduodenoscopy (Chronic) History of dilation and curettage (Chronic) History of colonoscopy (Chronic) History of colectomy (Chronic) History of carpal tunnel repair (Chronic) History of laparoscopic cholecystectomy (Acute) Pertinent family history: Family History (Last Reviewed 06/09/17 @ 09:22 by Madelyn Zimmerman CMA) Father Asthma Diabetes mellitus Mother Malignant neoplasm of breast, Onset Age: 65 Unknown Malignant neoplasm of lung Medical - H&P: Meds Home Medications Medication Instructions Recorded Confirmed Type Multivitamin 1 tab PO QDAY 09/01/14 10/15/17 History fluoxetine 20 mg capsule 20 mg PO QDAY #90 cap 11/13/16 10/15/17 Rx lisinopril 5 mg tablet 5 mg PO QDAY #90 tab 02/10/17 10/15/17 Rx lovastatin 20 mg tablet 20 mg PO QPM #90 tab 02/10/17 10/15/17 Rx Omeprazole [Prilosec] 20 mg PO BID 05/18/17 10/15/17 History metFORMIN HCL [Metformin HCl ER] 1,000 mg PO QPM 05/18/17 10/15/17 History CPAP SUPPLIES #1 each 05/28/17 09/09/17 Rx CPAP machine #1 each 07/22/17 09/09/17 Rx albuterol sulfate HFA 90 2 puff INHALATION Q4-6H PRN #18 g 09/30/17 10/15/17 Rx mcg/actuation aerosol inhaler Lipase/Protease/Amylase [Zenpep Dr 1 each PO PC 10/15/17 10/15/17 History 40,000 Units Capsule] Allergies Allergy/AdvReac Type Severity Reaction Status Date / Time amitriptyline Allergy Severe Swelling Verified 10/14/17 13:50 tramadol Allergy Mild Rash Verified 10/14/17 13:50 morphine AdvReac Mild Headache Verified 10/14/17 13:50 Medical - H&P: Exam - Constitutional Vitals: Temp Pulse Resp BP Pulse Ox 96.3 F L 110 H 18 156/95 95 10/15/17 09:10 10/15/17 09:10 10/15/17 09:10 10/15/17 09:10 10/15/17 09:10 Exam: GENERAL: The patient is a well-developed, well-nourished in no apparent distress. Is alert and oriented x3. VITAL SIGNS: Reviewed and as noted elsewhere. HEENT: Head is normocephalic and atraumatic. Extraocular muscles are intact. Pupils are equal, round, and reactive to light. Nares appeared normal. Mouth appears any without lesions. Mucous membranes are moist. NECK: Normal to inspection, Supple, No lymphadenopathy or thyromegaly. LUNGS: Air entry equal on both sides, no wheezing, crackles or rhonchi noted. No accessory muscles of respiration HEART: Regular rate and rhythm normal, S1 and S2 heard, no Gallop, S3 or Rub Noted, No Gross murmur heard. ABDOMEN: Soft, epigastric tenderness, no distention, large pannus, no obviosu hepatomegaly, no guarding or ridigity, bowel sounds present. EXTREMITIES: No cyanosis, clubbing, rash, lesions or edema. NEUROLOGIC: Cranial nerves II through XII are grossly intact. Motor and Sensory System Grossly Intact PSYCHIATRIC: Normal affect, Normal Mood. Appropriate Behavior. SKIN: No ulceration or wounds noted, No jaundice, No rash noted. Medical - H&P: Reslt - Labs CBC & Chem 7: 10/15/17 09:36 10/15/17 09:36 Labs: Short CBC 10/15/17 Range/Units 09:36 WBC 13.6 H (4.5-11.0) K/mcL Hgb 16.5 H (12.0-15.0) g/dL Hct 48.3 H (36.0-48.0) % Plt Count 242 (140-440) K/mcL BMP 10/15/17 09:36 Sodium 137 Potassium 3.5 Chloride 99 Carbon Dioxide 25 BUN 16 Creatinine 1.0 Glucose 297 H Calcium 9.6 Liver Function 10/15/17 Range/Units 09:36 Total Bilirubin 0.6 (0.0-1.0) mg/dL Direct Bilirubin < 0.2 (0.0-0.3) mg/dL GGT 40 H (5-36) U/L AST 12 (0-37) U/l ALT 12 (0-40) U/l Alkaline Phosphatase 172 H (39-117) U/L Albumin 4.5 (3.2-5.2) gm/dL Medical - H&P: A/P - Narrative A/P Narrative: A/P Acute pancreatitis/ Post ERCP Diabeties LILA on CPAP HTN HLD Obesity Chr Pancreatitis Anxiety Plan Admit to obs status NPO for now IV dilaudid, po oxycodone, pain control IVF no e/o infection, will hold off imaging unless change in condition. resume diet when able resuem home meds Glucose constrol with ssi insulin for now; cpap for lila DVT hep sq Diet npo full code Medical - H&P: Qual - VTE Deep Vein Thrombosis/Pulmonary Embolism Present on Admission: No Social History - Social History marital status: single occupational status: disabled leisure activities: volunteer work - Tobacco smoking status: Current every day smoker - Tobacco Type tobacco type: cigarettes - Cigarette Details per day: 15 pack-years: 48 - Alcohol alcohol intake frequency: former alcohol drinker - Substance use substance use type: marijuana
[2017-10-15] MEDS: 0.9 % SODIUM CHLORIDE 10 ML SYRINGE IV SCH ×2 (12:25→20:34)
[2017-10-15] MEDS ORDERED: PROMETHAZINE 25 MG/ML VIAL IV PRN (13:53)
--- NOTE | 2017-10-15 14:03 | Cat Scan Report ---
ORIGINAL REPORT History: Pancreatitis and status post endoscopic placement of a stent in the bile duct yesterday. Patient has abdominal pain, nausea and vomiting TECHNIQUE: The patient was imaged following intravenous contrast scanning during the portal venous phase from the diaphragm to the iliac crest. Sagittal and coronal reformats were created. Radiation exposure was limited using dose reduction technology. FINDINGS: There is minor parenchymal scarring in the inferior segment lingula and lateral basal segment left lower lobe. Along the top of the diaphragm, adjacent to the right lobe of liver there is a surgical clip. The liver is normal in size and homogeneous. The gallbladder surgically absent and there are clips in the gallbladder fossa. There is air within the intrahepatic ducts within the left lobe. This is probably result of the stent placement performed yesterday. Intrahepatic ducts are nondilated. Common hepatic duct is dilated and contains a large amount of air. It measures 1.7 cm. The common bile duct is decompressed. There is a well-positioned stent placed through the ampulla into the distal common hepatic duct. There is no surrounding hemorrhage. There is a residual catheter fragment in the head of the pancreas which measures 5 mm in width and 1.9 cm in length. Moderate inflammation is present in the head neck and body of the pancreas and there is also significant inflammation of the surrounding peripancreatic fat. No pseudocyst or abscess are present. The tail of the pancreas is normal. There are segmental dilated segments of the pancreatic duct. They range from 2 to 6 mm in diameter. The duodenum is normal. There are segments of the jejunum which are dilated and measure up to 3.7 cm in diameter. The wall of the small intestine does not appear to be thickened or inflamed. There is retained barium in the proximal colon from a previous study. Noninflamed diverticula are noted in the descending colon. The spleen, adrenals and kidneys are normal. There is a moderate amount of plaque along the wall of normal caliber abdominal aorta. IMPRESSION: Well-positioned biliary stent extending from the ampulla into the common hepatic duct Moderate pancreatitis Small catheter fragment in the head of the pancreas ADDENDUM #1 Comparison is made with prior ERCP done on 07/11/17. The small tubular shaped structure seen within the head of the pancreas, which was thought to represent a catheter fragment was present at the time of the previous ERCP. It is apparent by ERCP that this is not a catheter fragment and therefore represents a tubular shaped calcification within the head of the pancreas. The findings were discussed with Dr. Serrano. Interpreted and Authenticated by: Abhijeet Ratliff 10/15/17
[2017-10-15] MEDS: PANTOPRAZOLE 40 MG VIAL IV SCH ×2 (14:36→17:51)
[2017-10-15] MEDS ORDERED: OMEPRAZOLE 20 MG CAPSULE PO SCH (17:00)
[2017-10-15] MEDS: LIPASE/PROTEASE/AMYLASE 1 CAP CAPSULE PO SCH (17:01)
[2017-10-15] MEDS ORDERED: metFORMIN 500 MG TAB.XL.24H PO SCH (17:30)
[2017-10-15] MEDS: KETOROLAC 30 MG/ML VIAL IV PRN (18:45)
[2017-10-15] MEDS: SIMVASTATIN 10 MG TABLET PO SCH (20:33)
[2017-10-15] MEDS: HEPARIN 5,000 UNIT/ML VIAL SQ SCH (20:33)
[2017-10-15] MEDS ORDERED: FAMOTIDINE/PF 20 MG/2 ML VIAL IV SCH (21:00)
[2017-10-16] MEDS: ONDANSETRON 4 MG/2 ML VIAL IV PRN (04:31)
[2017-10-16] MEDS: HYDROmorphone 2 MG/ML VIAL IV PRN (04:32)
[2017-10-16 05:38] LABS: Basophils # (Auto) 0 K/mcL (0.0-0.3); Basophils % (Auto) 0.2 % (0.0-2.0); Eosinophils # (Auto) 0 K/mcL (0.0-0.7); Eosinophils % (Auto) 0.1 % (0.0-7.0); Mean Cell Volume 88.6 fL (80.0-100.0); Mean Corpuscular HGB Conc 33.6 g/dL (31.0-36.0); Mean Corpuscular Hemoglobin 29.8 pg (26.0-34.0); Monocytes % (Auto) 6.7 % (1.0-12.0); Platelet Count 239 K/mcL (140-440); RBC 5.15 M/mcL (4.00-5.20); Red Cell Distribution Width 13.5 % (11.5-14.5)
[2017-10-16] MEDS: INSULIN LISPRO 1 UNIT/0.01 ML UNIT SQ SCH ×4 (05:51→21:21)
[2017-10-16 06:00] LABS: ALT/SGPT 13 U/l (0-40); Albumin 3.9 gm/dL (3.2-5.2); Albumin/Globulin Ratio 1.2 (1.0-2.3); Alkaline Phosphatase 158 U/L (39-117); Amylase 703 U/L (28-100); Bilirubin,Direct 0.2 mg/dL (0.0-0.3); Blood Urea Nitrogen 16 mg/dl (6-20); Gamma Glutamyl Transpeptidase 45 U/L (5-36); Uric Acid 2.9 mg/dL (2.5-8.0)
[2017-10-16 06:14] LABS: Lipase 973 U/L (7-60)
[2017-10-16] MEDS: 0.9 % SODIUM CHLORIDE 10 ML SYRINGE IV SCH ×4 (06:21→21:21)
[2017-10-16] MEDS: FLUoxetine HCL 10 MG CAPSULE PO SCH (07:57)
[2017-10-16] MEDS: PANTOPRAZOLE 40 MG VIAL IV SCH ×2 (07:57→16:40)
[2017-10-16] MEDS: LIPASE/PROTEASE/AMYLASE 1 CAP CAPSULE PO SCH ×3 (07:57→16:40)
[2017-10-16] MEDS: LISINOPRIL 5 MG TABLET PO SCH (07:57)
[2017-10-16] MEDS: MULTIVIT,THER IRON,CA,FA & MIN 1 TABLET PO SCH (07:57)
[2017-10-16] MEDS: KETOROLAC 30 MG/ML VIAL IV PRN ×2 (07:58→19:47)
[2017-10-16] MEDS: oxyCODONE HCL 5 MG TABLET PO PRN ×4 (07:58→21:30)
[2017-10-16] MEDS: HEPARIN 5,000 UNIT/ML VIAL SQ SCH ×2 (07:59→21:22)
[2017-10-16] MEDS ORDERED: DEXTROSE 50% 50 ML VIAL IV PRN (10:08)
[2017-10-16] MEDS ORDERED: DEXTROSE 31 GM ORAL.SUSP PO PRN (10:08)
[2017-10-16] MEDS: 0.9 % SODIUM CHLORIDE 1,000 ML IV SCH (11:28)
--- NOTE | 2017-10-16 13:41 | Internal Med Progress Note ---
Medical - PN: Subj Patient information: Note initiated : 10/16/17 at 1:36 pm Service Date, if different from initiated Date: [] Patient: Valerie De La Cruz a 57 y/o F admitted on 10/15/17 for Pancreatitis Post ERCP. Chief Complaint: [] Interval history: Ms. De La Cruz is a 57 year old F with h/o billiary pancreatitis, h/o pancreatic stent exchange done yesterday. Postprocedure patient developed abdominal pain, epigastric region radiating to the back associated with nausea worse with eating food slightly better by rest. Patient's pain was constant. She has had history of pancreatitis before pain was not getting better. She called her GI providers in the asked her to come to the hospital. She has been admitted to the hospital with a diagnosis of post ERCP pancreatitis. Patient denies any alcohol use. Patient denies any fever chills chest pain shortness of breath no headache no dizziness she has had some nausea and vomiting intermittent constipation no diarrhea. Abdominal pain as described above. No urinary complaints no new joint pains no skin rashes. 10/16 Pt seen examined, no acute overnight issues, few episodes of nausea, abdominal pain still there but better tolerated breakfast this AM, as well as lunch advance diet to cc this pm anticipate d/c tomorrow amylase,lipase trending down Pertinent ROS: Denies headache, dizziness Denies chest pain, palpitations Denies cough or shortness of breath present but improving abdominal pain, and nausea. - Constitutional Vitals: Vital Signs Temp Pulse Resp BP Pulse Ox 96.5 F L 91 H 16 139/85 91 10/16/17 06:52 10/16/17 06:52 10/16/17 06:52 10/16/17 06:52 10/16/17 06:52 Period Temp Pulse Resp BP Sys/Goodman Pulse Ox Last 24 Hr 96.5 F-98.3 F 91-101 -18 107-146/28-91 91-94 Intake and Output 10/15/17 10/16/17 10/16/17 21:59 05:59 13:59 Intake Total 90 / 90 1199 / 1199 1615 / 1615 Output Total 175 / 175 415 / 415 450 / 450 Balance -85 / -85 784 / 784 1165 / 1165 Weight 206 lb 4.8 oz Intake & Output: Intake & Output 10/15/17 10/16/17 10/16/17 21:59 05:59 13:59 Intake Total / 90 1199 / 1199 1615 / 1615 Output Total 175 / 175 415 / 415 450 / 450 Balance -85 / -85 784 / 784 1165 / 1165 Weight 206 lb 4.8 oz Intake: IV 869 / 869 995 / 995 Sodium Chloride 0.9% 1,000 ml @ 869 / 869 995 / 995 75 mls/hr IV .[id number] [facility] Rx#: [id number] Oral 90 / 90 330 / 330 620 / 620 Output: Void Amount 175 / 175 400 / 400 450 / 450 Emesis Other: Meal Lunch Percent of Meal Consumed 25% Feeding Ability Independent Urine Appearance Clear Urine Color Dark Yellow Urine Odor Normal Exam: Constitutional; Afebrile, cooperative, alert, not in distress. Eyes- No icterus, , No periorbital swelling Ears- Ext ear normal, hearing normal to conversation. Neck- Midline trachea, supple Respiratory system: Air Entry equal on both sides, No crackles or wheezing, no rhonchi. CVS- Rate rhythm regular, S1,S2 heard, no gallop, no rub. 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 Medical - PN: Obj Da - Labs CBC & Chem 7: 10/16/17 04:25 10/16/17 04:25 Labs: Abnormal Lab Results 10/16/17 10/16/17 10/15/17 04:25 04:25 09:36 WBC 15.1 H RBC Hgb 15.4 H Hct Gran % 80.0 H Lymph % (Auto) 13.0 L Gran # 12.1 H Lymph # (Auto) Wilcox # (Auto) 1.0 H Glucose 207 H 297 H Phosphorus 2.5 L Total Bilirubin 1.1 H GGT 45 H 40 H Alkaline Phosphatase 158 H 172 H Triglycerides 210 H 201 H Amylase 703 H 803 H Lipase 973 H 1938 H 10/15/17 09:36 WBC 13.6 H RBC 5.51 H Hgb 16.5 H Hct 48.3 H Gran % 86.0 H Lymph % (Auto) 8.6 L Gran # 11.7 H Lymph # (Auto) 1.2 L Wilcox # (Auto) Glucose Phosphorus Total Bilirubin GGT Alkaline Phosphatase Triglycerides Amylase Lipase Meds: Medications Acetaminophen (Tylenol) 650 mg PO Q6HP PRN PRN Reason: PAIN/FEVER > 101 Lipase/Protease/Amylase (Creon) 1 cap PO PC [facility] Last Admin: 10/16/17 11:28 Dose: 1 cap Dextrose (Dextrose 50%) 0 ml IV UD PRN PRN Reason: Hypoglycemia Dextrose (Dextrose 50%) 0 ml IV UD PRN PRN Reason: Hypoglycemia Diagnostic Test (Pha) (Accu-Chek) 1 each FS ACHS [facility] Last Admin: 10/16/17 11:19 Dose: 1 each Fluoxetine HCl (Prozac) 20 mg PO QDAY [facility] Last Admin: 10/16/17 07:57 Dose: 20 mg Glucose (Insta-Glucose) 15 gm PO PRN PRN PRN Reason: Hypoglycemia Heparin Sodium (Porcine) (Heparin) 5,000 unit SQ Q12 [facility] Last Admin: 10/16/17 07:59 Dose: 5,000 unit Hydromorphone HCl (Dilaudid) 1 mg IV Q2HP PRN PRN Reason: Severe Pain Last Admin: 10/16/17 04:32 Dose: 1 mg Sodium Chloride (Sodium Chloride 0.9%) 1,000 mls @ 75 mls/hr IV .[id number] [facility] Last Admin: 10/16/17 11:28 Dose: 75 mls/hr Insulin Human Lispro (Humalog) 0 unit SQ [facility]; Protocol Last Admin: 10/16/17 11:27 Dose: 2 unit Iron Carb/Multivit/[place]/Folic Acid (Multivitamin W/Minerals) 1 tab PO DAILY [facility] Last Admin: 10/16/17 07:57 Dose: 1 tab Ketorolac Tromethamine (Toradol) 30 mg IV Q6HP PRN PRN Reason: Pain Stop: 10/17/17 09:18 Last Admin: 10/16/17 07:58 Dose: 30 mg Lisinopril (Zestril) 5 mg PO QDAY [facility] Last Admin: 10/16/17 07:57 Dose: 5 mg Ondansetron HCl (Zofran) 4 mg IV Q6HP PRN PRN Reason: Nausea And Vomiting Last Admin: 10/16/17 04:31 Dose: 4 mg Oxycodone HCl (Roxicodone) 5 mg PO Q4HP PRN PRN Reason: PAIN LEVEL 3-6 Last Admin: 10/16/17 12:03 Dose: 5 mg Pantoprazole Sodium (Protonix) 40 mg IV BIDAC [facility]USAM Last Admin: 10/16/17 07:57 Dose: 40 mg Promethazine HCl (Phenergan) 12.5 mg IV Q4HP PRN PRN Reason: Nausea And Vomiting Last Admin: 10/15/17 14:03 Dose: 12.5 mg Senna (Senokot) 2 tab PO HS HUSAM Simvastatin (Zocor) 10 mg PO HS HUSAM Last Admin: 10/15/17 20:33 Dose: 10 mg Sodium Chloride (Saline Flush) 10 ml IV Q8 [facility] Last Admin: 10/16/17 06:21 Dose: Not Given Medical - PN: A/P - Time Spent With Patient Total time spent is greater than 50% in coordination of care (as documented) at patient's floor/unit and/or counseling patient: - Narrative A/P Narrative: A/P Acute pancreatitis/ Post ERCP Diabeties ZULEIKA on CPAP HTN HLD Obesity Chr Pancreatitis Anxiety Plan Admit to obs status pain mangemetn with opiates, ketorolac, good response tolerating full liquid diet, advance to CC diet, monitor if able to tolerate can be discharged home this pm or tomorrow morning, start on senna qhs DVT hep sq Diet npo full code Medical - PN: Qual - VTE Deep Vein Thrombosis/Pulmonary Embolism Present on Admission: No
[2017-10-16] MEDS ORDERED: SENNOSIDES 1 TABLET PO SCH (21:00)
[2017-10-16] MEDS: SIMVASTATIN 10 MG TABLET PO SCH (21:22)
[2017-10-17] MEDS: oxyCODONE HCL 5 MG TABLET PO PRN ×2 (01:24→08:01)
[2017-10-17] MEDS: KETOROLAC 30 MG/ML VIAL IV PRN (02:11)
[2017-10-17] MEDS: 0.9 % SODIUM CHLORIDE 10 ML SYRINGE IV SCH ×3 (02:12→05:34)
[2017-10-17] MEDS ORDERED: BISACODYL 10 MG SUPP.RECT PR PRN (05:25)
[2017-10-17] MEDS ORDERED: MAGNESIUM HYDROXIDE 30 ML ORAL.SUSP PO PRN (05:25)
[2017-10-17] MEDS ORDERED: FLEETS ADULT ENEMA PR PRN (05:25)
[2017-10-17 05:44] LABS: Basophils # (Auto) 0 K/mcL (0.0-0.3); Basophils % (Auto) 0.3 % (0.0-2.0); Eosinophils # (Auto) 0 K/mcL (0.0-0.7); Eosinophils % (Auto) 0.5 % (0.0-7.0); Granulocytes % (Auto) 78.9 % (38.0-78.0); Lymphocytes # (Auto) 1.3 K/mcL (1.5-4.8); Lymphocytes % (Auto) 13.7 % (15.5-49.0); Mean Cell Volume 88.3 fL (80.0-100.0); Mean Corpuscular HGB Conc 33.5 g/dL (31.0-36.0); Mean Corpuscular Hemoglobin 29.6 pg (26.0-34.0); Monocytes # (Auto) 0.6 K/mcL (0.1-0.9); Monocytes % (Auto) 6.6 % (1.0-12.0); Platelet Count 188 K/mcL (140-440); RBC 4.79 M/mcL (4.00-5.20); Red Cell Distribution Width 12.9 % (11.5-14.5)
[2017-10-17 06:26] LABS: ALT/SGPT 13 U/l (0-40); Albumin 3.8 gm/dL (3.2-5.2); Albumin/Globulin Ratio 1.1 (1.0-2.3); Alkaline Phosphatase 161 U/L (39-117); Amylase 205 U/L (28-100); Bilirubin,Direct 0.3 mg/dL (0.0-0.3); Blood Urea Nitrogen 9 mg/dl (6-20); Gamma Glutamyl Transpeptidase 49 U/L (5-36); Lipase 177 U/L (7-60); Uric Acid 2.6 mg/dL (2.5-8.0)
[2017-10-17] MEDS: PANTOPRAZOLE 40 MG VIAL IV SCH (07:48)
[2017-10-17] MEDS: INSULIN LISPRO 1 UNIT/0.01 ML UNIT SQ SCH (08:01)
[2017-10-17] MEDS: LIPASE/PROTEASE/AMYLASE 1 CAP CAPSULE PO SCH (08:01)
--- NOTE | 2017-10-17 08:27 | Discharge Summary ---
Medical - DS: Prov Patient information: Note initiated : 10/17/17 at 8:24 am Service Date, if different from initiated Date: [] Patient: Valerie De La Cruz 57 y/o F admitted on 10/15/17 for Pancreatitis Post ERCP. Chief Complaint: [] Date of admission: 10/15/17 09:10 Discharge date: 10/17/17 Primary care physician: Alexander Arriaga Admitting clinician: Enzo Husain Discharging clinician: Enzo Husain Medical - DS: Meds - Discharge Medications Prescriptions: Ondansetron HCl [Zofran ODT] 4 mg SL Q4-6HP PRN #10 tab PRN Reason: Nausea And Vomiting oxyCODONE HCL [Oxycodone HCl] 5 mg PO Q4HP PRN #20 tab PRN Reason: Pain Active and Home Medications: Home Medications Multivitamin 1 tab PO QDAY 09/01/14 [History Confirmed 10/15/17 Last Taken 10/13] fluoxetine 20 mg capsule 20 mg PO QDAY #90 cap 11/13/16 [Rx Confirmed 10/15/17 Last Taken 10/13/17] lisinopril 5 mg tablet 5 mg PO QDAY #90 tab 02/10/17 [Rx Confirmed 10/15/17 Last Taken 10/13/17] lovastatin 20 mg tablet 20 mg PO QPM #90 tab 02/10/17 [Rx Confirmed 10/15/17 Last Taken 10/13/17] Omeprazole [Prilosec] 20 mg PO BID 05/18/17 [History Confirmed 10/15/17 Last Taken 10/13/17] metFORMIN HCL [Metformin HCl ER] 1,000 mg PO QPM 05/18/17 [History Confirmed 10/25 Last Taken 10/13/17] albuterol sulfate HFA 90 mcg/actuation aerosol inhaler 2 puff INHALATION Q4-6H PRN #18 g 09/30/17 [Rx Confirmed 10/15/17 Last Taken 10/14/17] Lipase/Protease/Amylase [Zenpep Dr 40,000 Units Capsule] 1 each PO PC 10/15/17 [ History Confirmed 10/15/17 Last Taken 10/13/17] Medical - DS: Hosp Hospital course: Ms. De La Cruz is a 57 year old F with h/o billiary pancreatitis, h/o pancreatic stent exchange done yesterday. Postprocedure patient developed abdominal pain, epigastric region radiating to the back associated with nausea worse with eating food slightly better by rest. Patient's pain was constant. She has had history of pancreatitis before pain was not getting better. She called her GI providers in the asked her to come to the hospital. She has been admitted to the hospital with a diagnosis of post ERCP pancreatitis. Patient denies any alcohol use. Pancreatitis, treated conservatively, Abdominal CT shows moderate Pancreatitis, no complications, she was started on clear liquid diet and advanced to regular diet, she was able to eat regular diet last night and again this AM Her lipase is down nicely, from 803 to 205 at discharge. Pain is well controlled she has issues with constipation, which she notes usually resolves when she goes home. The rest of the stay in the hospital was unremarkable, she is advised to follow up with her GI doctor as previously scheduled. She has a calcified lesion / pancreatic duct, which may be the cause of recurrent pancreatitis as per discussions with GI and she may need a referral to a higher center. TO be coordinated by GI team. Discharge diagnosis: Post ERCP Pancreatitis - Time Spent with Patient Total time spent providing and/or coordinating discharge services: Less than 30 minutes Medical - DS: Exam - Constitutional Vitals: Vital Signs Temp Pulse Resp BP Pulse Ox 10/17/17 06:39 98.3 F 16 143/87 93 10/17/17 04:00 97.2 F 88 14 141/87 95 10/17/17 02:25 92 H 158/92 10/17/17 01:30 90 158/92 10/17/17 01:25 127/94 10/17/17 00:00 98.3 F 92 H 16 163/102 93 10/16/17 18:28 98.3 F 89 18 157/87 95 10/16/17 16:00 98.1 F 93 H 14 164/81 89 L 10/16/17 12:00 98.2 F 88 14 167/92 92 Intake and Output 10/16/17 10/17/17 10/17/17 21:59 05:59 13:59 Intake Total 220 / 220 500 / 500 Output Total 1100 / 1100 800 / 800 Balance -880 / -880 -300 / -300 Intake: Oral 220 / 220 500 / 500 Output: Void Amount 1100 / 1100 800 / 800 Other: Meal Dinner Percent of Meal Consumed 50% Feeding Ability Independent Urine Appearance Clear Clear Urine Color Light Marcie Dark Yellow Urine Odor Normal # Voids 1 Weight 203 lb Additional comments: Constitutional; Afebrile, cooperative, alert, not in distress. Eyes- No icterus, , No periorbital swelling Ears- Ext ear normal, hearing normal to conversation. Neck- Midline trachea, supple Respiratory system: Air Entry equal on both sides, No crackles or wheezing, no rhonchi. CVS- Rate rhythm regular, S1,S2 heard, no gallop, no rub. 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 Medical - DS: Data Labs on day of discharge: Labs from last 24 hours 10/17/17 10/17/17 04:20 04:20 WBC 9.6 RBC 4.79 Hgb 14.2 Hct 42.3 MCV 88.3 MCH 29.6 MCHC 33.5 RDW 12.9 Plt Count 188 MPV 8.8 Gran % 78.9 H Lymph % (Auto) 13.7 L [place] % (Auto) 6.6 Eos % (Auto) 0.5 Baso % (Auto) 0.3 Gran # 7.5 Lymph # (Auto) 1.3 L [place] # (Auto) 0.6 Eos # (Auto) 0 Baso # (Auto) 0 Sodium 136 Potassium 3.6 Chloride 98 Carbon Dioxide 27 Anion Gap 11.0 BUN 9 Creatinine 0.7 GFR Calculation 96 Glucose 178 H Uric Acid 2.6 Calcium 9.3 Phosphorus 2.6 L Magnesium 1.9 Total Bilirubin 1.1 H Direct Bilirubin 0.3 GGT 49 H AST 13 ALT 13 Alkaline Phosphatase 161 H Lactate Dehydrogenase 239 Total Protein 7.3 Albumin 3.8 Globulin 3.5 Albumin/Globulin Ratio 1.1 Triglycerides 200 H Amylase 205 H Lipase 177 H Medical - DS: A/P - Patient/Caregiver Discharge Instructions Activity: increase activity as tolerated Diet: Consistent Carbohydrate Additional Instructions: Take oxycodone 5mg every 6 hrs as needed for abdominal pain, Ondansetron 4mg every 4hrs for nausea and or vomiting Follow up with your GI doctor as previously scheduled. Go to the ER if worsening pain, fever, or any other acute concerns. I have not made changes to any of your usual home medications, please take them as prescribed by your regular doctor. - Follow up Plan Disposition: Home, Self-Care Prognosis: Fair Rehab Potential: Fair I certify that the patient requires SNF services: No Overall status at discharge: patient is progressing back to baseline Medical - DS: Qual - VTE Deep Vein Thrombosis/Pulmonary Embolism Present on Admission: No
[2017-10-17] MEDS: LISINOPRIL 5 MG TABLET PO SCH (08:50)
[2017-10-17] MEDS: HEPARIN 5,000 UNIT/ML VIAL SQ SCH (08:50)
[2017-10-17] MEDS: MULTIVIT,THER IRON,CA,FA & MIN 1 TABLET PO SCH (08:50)
[2017-10-17] MEDS: FLUoxetine HCL 10 MG CAPSULE PO SCH (08:50)
[2017-10-17] MEDS ORDERED: DOCUSATE SODIUM 100 MG CAPSULE PO SCH (09:00)
== END 2017-10-17 09:14 | disposition home or self-care (01) ==
LOC: MEDSUR 09:10 → INTOOBSV 09:10
PROVIDERS: ADMIT Internal Medicine; ATTEND Internal Medicine